=== PATIENT | female | born 1930 | race Caucasian/White ===

== ENCOUNTER 2017-05-28 21:26 | Inpatient (IN) ==
[2017-05-29] MEDS ORDERED: traMADol 50 MG TABLET PO SCH ×2 (00:30→21:00)
[2017-05-29 01:04] LABS: Basophils # 0.1 K/mcL (0.0-0.2); Basophils % 0.4 %; Eosinophils % 0.2 %; Hematocrit 27.6 % (35.3-44.9); Hemoglobin 9.1 g/dL (11.5-15.4); Immature Granulocytes % 1.3 % (0-4); Immature Platelets 3.5 % (1.1-6.1); Lymphocytes # 0.7 K/mcL (0.6-4.6); Lymphocytes % 3.9 %; Mean Corpuscular Hemoglobin 29.5 pg (28.0-33.3); Mean Corpuscular Volume 89.6 fL (83.0-100.0); Mean Platelet Volume 10.6 fL (9.4-12.4); Monocytes # 0.7 K/mcL (0.0-1.3); Monocytes % 4.2 %; Neutrophils # 15.1 K/mcL (1.6-8.9); Platelet Count 269 K/mcL (140-400); Red Blood Count 3.08 M/mcL (3.82-4.97); Red Cell Distribution Width 13.1 % (11.5-14.5)
[2017-05-29] MEDS ORDERED: Dextrose Gel 15 GM PO PRN ×4 (01:17→13:06)
[2017-05-29] MEDS ORDERED: *HR* Dextrose 50 % in Water (Syg) 50 ML SYRINGE IVP PRN ×2 (01:17→13:06)
[2017-05-29] MEDS ORDERED: D5% in Water 1,000 ML IVC PRN ×2 (01:17→13:06)
[2017-05-29 01:18] LABS: Albumin 2.8 g/dL (3.5-5.0); Albumin/Globulin Ratio 0.8 (1.1-2.2); Bilirubin,Total 0.5 mg/dL (0.2-1.2); Calcium 8.4 mg/dL (8.6-10.8); Globulin 3.3 g/dL (2.4-3.5); Potassium 3.4 mEq/L (3.5-4.5); Total Protein 6.1 g/dL (6.0-8.3)
[2017-05-29] MEDS ORDERED: Naloxone 0.4 MG/ML INJ IVP PRN ×2 (01:24→13:06)
[2017-05-29] MEDS ORDERED: Acetaminophen 325 MG TABLET PO PRN (01:24)
[2017-05-29] MEDS ORDERED: Vancomycin 750 MG in D5% in Water 250 ML IVPB SCH (02:00)
[2017-05-29] MEDS ORDERED: Levofloxacin 750 MG/150 ML 750 MG/150 ML BAG IVPB SCH (02:00)
[2017-05-29] MEDS ORDERED: Vancomycin 1,000 MG in D5% in Water 250 ML IVPB ONE (02:00)
[2017-05-29] MEDS ORDERED: Meropenem 500 MG in 0.9 % Sodium Chloride Mini Bag 100 ML IVPB SCH (02:00)
[2017-05-29] MEDS ORDERED: *HR* OxyCODONE/APAP 5/325 TABLET PO PRN ×2 (03:26→13:06)
[2017-05-29 03:51] LABS: Basophils # 0.1 K/mcL (0.0-0.2); Basophils % 0.4 %; Eosinophils % 0.2 %; Hematocrit 25.9 % (35.3-44.9); Hemoglobin 8.7 g/dL (11.5-15.4); Immature Granulocytes % 0.5 % (0-4); Lymphocytes # 0.8 K/mcL (0.6-4.6); Lymphocytes % 5.7 %; Mean Corpuscular HGB Conc 33.6 g/dL (31.6-35.5); Mean Corpuscular Hemoglobin 29.9 pg (28.0-33.3); Mean Platelet Volume 10.4 fL (9.4-12.4); Monocytes # 0.7 K/mcL (0.0-1.3); Neutrophils # 12.3 K/mcL (1.6-8.9); Platelet Count 249 K/mcL (140-400); Red Blood Count 2.91 M/mcL (3.82-4.97); Segmented Neutrophils % 88.2 %
[2017-05-29] MEDS ORDERED: Meropenem 500 MG in Water for inj. (sterile) 10 ML IVP SCH (04:00)
[2017-05-29 04:07] LABS: Calcium 8.4 mg/dL (8.6-10.8); Magnesium 1.7 mg/dL (1.6-2.6); Potassium 3.2 mEq/L (3.5-4.5)
--- NOTE | 2017-05-29 05:13 | Internal Med History&Physical ---
Date of Encounter: 05/29/17 Time of Encounter: 00:15 Assessment and Plan (1) Fluid overload Current visit: Yes Status: Acute Pt has mild SOB, elevated BNP, CXR show pulmonary edema, consider fluid overload. - Pt is in no acute respiratory distress. Finished HD today, potassium level not high, not need urgent HD. - Place pt on low salt diet and fluid restriction. - Repeat echo in AM - Nephro consult for further arrangement of HD in hospital. Qualifiers: Hypervolemia type: other Qualified Code(s): E87.79 - Other fluid overload (2) HTN (hypertension) Current visit: No Status: Chronic Cont home meds. Qualifiers: Hypertension type: essential hypertension Qualified Code(s): I10 - Essential (primary) hypertension (3) Diabetes Current visit: No Status: Chronic Cont basal and sliding scale insulin. Qualifiers: Diabetes mellitus type: type 2 Diabetes mellitus complication status: without complication Diabetes mellitus senior living insulin use: with senior living use Qualified Code(s): E11.9 - Type 2 diabetes mellitus without complications ; Z79.4 - FDC (current) use of insulin (4) DVT prophylaxis Current visit: No Status: Acute Heparin sc (5) End stage renal disease on dialysis Current visit: No Status: Chronic Cont HD (6) Pneumonia Current visit: No Status: Acute Pt has leukocytosis, cough, SOB, CXR shows pneumonia. Pt has ESRD and has frequent HD, treat as HCAP - place pt on vanco, meropenam, and levaquin. - supportive treatment with O2 - follow blood and sputum culture. Pt is at high risk b/o vanco use, need close monitoring Qualifiers: Pneumonia type: due to unspecified organism Laterality: right Lung location: upper lobe of lung Qualified Code(s): J18.1 - Lobar pneumonia, unspecified organism Internal Medicine - H&P: HPI Chief complaint: SOB Admitted From: Home Plans for Post Hospital Care: Home History of present illness: Ms. Freeman is a 86 year old female with hx of DM, ESRD on HD, transferred from [facility] for SOB. Pt was lethargic, weak and increased SOB for 3 days and worse this morning. Pt finished her scheduled HD today. She has running nose and mild nonproductive cough. No fever. Denies chest pain, nausea or vomiting. Pt was transferred to our hospital and stat CXR orderred, which shows pneumonia. Pt was treated with Abx and supportive treatment and her SOB has improved. Past Med Surg Social Fam HX - Past Medical History Medical history: arthritis, diabetes, dialysis, hyperlipidemia, hypertension, renal disease Psychiatric history: no psych history - Past Surgical History Surgical History: appendectomy, cataract, cholecystectomy, ROHAN/BSO, other - Social History Smoking Status: Never smoker Smokeless Tobacco Status: No Alcohol use: none Drug use: none - Family History Mother Living Status: Hx Family Cardiac Disorders: Yes Hx Family Endocrine Disorder: Yes Internal Medicine - H&P: Meds Calcitriol [Rocaltrol] 0.25 mcg PO QAM 05/06/15 [History] Cholecalciferol (Vitamin D3) [Vitamin D] 1,000 units PO QAM 05/06/15 [History] Glimepiride [Amaryl] 4 mg PO QAM 05/06/15 [History] Insulin DETEMIR [Levemir] 12 unit SQ DAILY 05/06/15 [History] Labetalol [Trandate] 200 mg PO QAM 05/06/15 [History] TraMADol [Ultram] 50 mg PO Q6H PRN 05/06/15 [History] Labetalol [Trandate] 100 mg PO QPM 06/15/16 [History] Omeprazole [PriLOSEC] 20 mg PO QAM 06/15/16 [History] Lovastatin [Mevacor] 20 mg PO HS #30 tablet 06/30/16 [Rx] Amino Acids/Protein Hydrolys [Proteinex-18 Liquid] 30 ml PO QAM 07/20/16 [ History] Amlodipine Besylate 10 mg PO QAM 07/20/16 [History] Aspirin Enteric Coated [Aspirin EC] 81 mg PO QAM 07/20/16 [History] Lisinopril [Zestril] 20 mg PO QAM 07/20/16 [History] Vit B Cplx C No.13/Folic AC/D3 [Nephrocaps Qt Tablet] 1 each PO QAM 07/20/16 [ History] 3 Allergy/AdvReac Type Severity Reaction Status Date / Time Cefaclor [From Ceclor] Allergy Unknown Rash Verified 05/06/15 12:36 cephalexin Allergy Unknown Rash Verified 05/06/15 12:36 orphenadrine [From Norflex] Allergy Unknown Rash Verified 05/06/15 12:36 rofecoxib [From Vioxx] Allergy Unknown Rash Verified 05/06/15 12:36 sulfamethoxazole Allergy Unknown Rash Verified 05/06/15 12:36 [From Bactrim] trimethoprim [From Bactrim] Allergy Unknown Rash Verified 05/06/15 12:36 valdecoxib [From Bextra] Allergy Unknown Rash Verified 05/06/15 12:36 atorvastatin [From Lipitor] AdvReac Muscle Pain Verified 06/28/16 01:06 All Systems PM: A 10-system review of systems was performed and is negative for pertinent findings except as documented above in the HPI. - Constitutional Vitals: Temp Pulse Resp BP Pulse Ox 98.4 F 67 12 142/55 98 05/29/17 04:00 05/29/17 05:00 05/29/17 05:00 05/29/17 05:00 05/29/17 05:00 General appearance: Present: A&O X 3, no acute distress, answers questions appropriately - Head Head exam: Present: atraumatic, normocephalic - Eye Eye exam: Present: PERRL, conjuntiva pink, sclera anicteric Pupils: Present: PERRL - Neck Neck exam general surgery: Present: supple, trachea midline. Absent: lymphadenopathy - Respiratory Respiratory exam: Present: CTAB. Absent: accessory muscle use, rales, rhonchi, wheezes - Cardiovascular Cardiovascular exam: Present: RRR, +S1, +S2. Absent: diastolic murmur, gallop, rubs, systolic murmur - GI/Abdominal GI/Abdominal exam: Present: normal bowel sounds, soft, no peritoneal signs. Absent: distended, tenderness - Extremities Exam Extremities exam: Present: warm, radial pulses palpable and symmetrical. Absent : calf tenderness, cyanotic, pedal edema - Neurological Exam Neurological exam: Present: CN II-XII intact, oriented X3, no focal deficits. Absent: pronater drift, facial droop, speech deficit - Skin Skin exam: Present: dry, intact Internal Med - H&P Results - Labs CBC & Chem 7: 05/29/17 03:20 05/29/17 03:20 Labs: Short CBC 05/29/17 05/29/17 Range/Units 00:15 03:20 WBC 16.7 H 14.0 H (4.3-11.1) K/mcL Hgb 9.1 L 8.7 L (11.5-15.4) g/dL Hct 27.6 L 25.9 L (35.3-44.9) % Plt Count 269 249 (140-400) K/mcL Neutrophils # 15.1 H 12.3 H (1.6-8.9) K/mcL BMP 05/29/17 05/29/17 00:15 03:20 Sodium 138 137 Potassium 3.4 L 3.2 L Chloride 97 L 97 L Carbon Dioxide 33 H 33 H BUN 20 21 H Creatinine 1.81 H 1.87 H Glucose 210 H 199 H Calcium 8.4 L 8.4 L Liver Function 05/29/17 Range/Units 00:15 Total Bilirubin 0.5 (0.2-1.2) mg/dL AST 25 (5-34) Units/L ALT 28 (0-55) Units/L Alkaline Phosphatase 98 (38-126) Units/L Albumin 2.8 L (3.5-5.0) g/dL - EKG Data -: EKG Interpreted by Myself EKG shows normal: sinus rhythm Rate: normal - Impressions ITS Impressions Chest X-Ray 05/29/17 23:59 IMPRESSION: 1. Worsening pulmonary edema and developing right upper lobe infiltrate, concerning for pneumonia. 2. Larger left pleural effusion with consolidation in the left lung base. D/ / Fabio Beltran MD / Fabio Beltran MD Interpreting Provider: Fabio Beltran MD
[2017-05-29] MEDS ORDERED: *HR* Heparin 5,000 UNIT/ML VIAL SQ SCH (06:00)
[2017-05-29] MEDS: Insulin LISPRO 300 UNITS/3 ML VIAL SQ SCH ×4 (07:26→21:18)
[2017-05-29] MEDS ORDERED: *HR* Glimepiride 4 MG TABLET PO SCH (07:30)
[2017-05-29] MEDS ORDERED: Ondansetron 4 MG/2 ML VIAL IVP PRN ×2 (07:54→13:06)
[2017-05-29] MEDS ORDERED: Ipratropium/Albuterol Neb 3 ML IH PRN ×2 (08:38→13:06)
--- NOTE | 2017-05-29 08:43 | Event Note ---
<Jorge Kimball - Last Filed: 05/29/17 12:48> Date of Encounter: 05/29/17 Time of Encounter: 08:30 86F evaluated at bedside. Patient came into the hospital with chief complaint of shortness of breath. She also had fevers, chills, non productive cough. she admits to some nausea, but denies vomiting, diarrhea, fever, or chills. she denies any further complaints today. She denies hematuria, blood in stools, dark /tarry stools. Physical Exam: General: alert and oriented x3, no acute distress CV: regular rate and rhythm, no murmurs, rubs, or gallops Respiratory: diffuse rales present. Extremities: no cyanosis, edema, clubbing. Abdomen: soft, mildly distended, tenderness to palpation Assessment/Plan: 1. Sepsis patient meets sepsis criteria based on respirations 22, elevated WBC. source of infection likely secondary to pneumonia. CXR showed pulmonary edema, right upper lobe devloping infiltrate, left pleural effusion. Currently using 2L oxygen, patient does not wear oxygen at home. Plan: Blood and sputum cultures pending. discontinue meropenem- no indication at this time. continue vancomycin, zosyn, levaquin. PRN DuoNebs wean off oxygen as tolerated. 2. Fluid Overload: BP 3353 last Echo was in 2015, repeat echo pending. 3. ESRD on HD MWF consult to nephro 4. Anemia: Baseline Hg around 8.5 check iron panel, ferritin, B12, folate, stool guiac 5. HTN: continue home meds 6. Diabetes: Low dose sliding scale insulin with basal insulin ACHS accuchecks ADA diet. 7. DVT prophylaxis: Heparin SQ <Leslie Diaz - Last Filed: 05/29/17 18:01> Date of Encounter: 05/29/17 Time of Encounter: 00:50 Patient independently seen and examined at bedside. Reports of feeling significantly better from previous day. Admitted for acute respiratory distress likely secondary to underlying pneumonia, and volume overload. He should has history of end-stage renal disease and is on hemodialysis. Nephrology on board, patient scheduled for hemodialysis in a.m. Continue empiric antibiotics, to supplementation as needed. Case discussed with resident physician Jorge Kimball, I agree with her documented findings, assessment, and plan, except as listed above.
--- NOTE | 2017-05-29 08:50 | Event Note ---
Date of Encounter: 05/29/17 Time of Encounter: 08:18
[2017-05-29] MEDS ORDERED: amLODIPine 5 MG TABLET PO SCH (09:00)
[2017-05-29] MEDS ORDERED: Cholecalciferol (D-3) 1,000 UNIT TABLET PO SCH (09:00)
[2017-05-29] MEDS ORDERED: Lisinopril 20 MG TABLET PO SCH (09:00)
[2017-05-29] MEDS ORDERED: Aspirin 81 MG TAB.CHEW PO SCH (09:00)
[2017-05-29] MEDS ORDERED: Insulin DETEMIR 100 UNIT/ML X5UNITS SQ SCH (09:00)
--- NOTE | 2017-05-29 09:57 | Nephrology Consult Note ---
<Nisha Chinchilla - Last Filed: 05/29/17 10:06> Date of Encounter: 05/29/17 Time of Encounter: 09:53 Assessment and Plan (1) Hypokalemia Current Visit: No Status: Acute K+ 3.2 Will adjust K+ bath in dialysis as necessary Do not give K+ supplement at this time (2) ESRD (end stage renal disease) on dialysis Current Visit: No Status: Acute Plan for dialysis tomorrow K+ 3.2-Will adjust K+ bath as necessary; do not give K+ supplement Continue renal diet Strict I/Os-ordered Vanco to be dose by pharmacy Avoid nephrotoxins if possible (3) Anemia Current Visit: No Status: Acute Hgb 8.7 Goal 10-11 Will give Aranesp as indicated Transfuse per parameters Qualifiers: Anemia type: iron deficiency Iron deficiency anemia type: unspecified iron deficiency Qualified Code(s): D50.9 - Iron deficiency anemia, unspecified (4) Pneumonia Current Visit: No Status: Acute per primary team Vanco to be dose by pharmacy Qualifiers: Pneumonia type: due to unspecified organism Laterality: right Lung location: upper lobe of lung Qualified Code(s): J18.1 - Lobar pneumonia, unspecified organism (5) HTN (hypertension) Current Visit: No Status: Chronic per primary team Qualifiers: Hypertension type: essential hypertension Qualified Code(s): I10 - Essential (primary) hypertension History of Present Illness - Reason for Consult Consult date: 05/29/17 - Chief Complaint pneumonia, ESRD on dialysis - History of Present Illness Ms. Freeman is a 86 year old female well known to our practice with hx of DM , ESRD on HD, HTN, arthritis, and hyperlipidemia who was admitted for shortness of breath. Pt was lethargic, weak and increased SOB for 3 days and worse this morning. She has had a runny nose and mild nonproductive cough. No fever. Denies chest pain, nausea or vomiting. Chest xray shows right upper lobe pneumonia. Patient had a full dialysis treatment yesterday at [facility] where she receives her HD treatments M,W,F. She is a very compliant patient who does well in dialysis. Nephrology has been consulted to manage her HD while hospitalized. Past Med Surg Social Fam HX - Past Medical History Medical history: arthritis, diabetes, dialysis, hyperlipidemia, hypertension, renal disease Psychiatric history: no psych history - Past Surgical History Surgical History: appendectomy, cataract, cholecystectomy, ROHAN/BSO, other - Social History Smoking Status: Never smoker Smokeless Tobacco Status: No Alcohol use: none Drug use: none - Family History Mother Living Status: Hx Family Cardiac Disorders: Yes Hx Family Endocrine Disorder: Yes Medications and Allergies Cholecalciferol (Vitamin D3) [Vitamin D] 1,000 units PO QAM 05/06/15 [History] Glimepiride [Amaryl] 4 mg PO QAM 05/06/15 [History] Insulin DETEMIR [Levemir] 12 unit SQ DAILY 05/06/15 [History] Labetalol [Trandate] 100 mg PO QPM 06/15/16 [History] Omeprazole [PriLOSEC] 20 mg PO QAM 06/15/16 [History] Lovastatin [Mevacor] 20 mg PO HS #30 tablet 06/30/16 [Rx] Amlodipine Besylate 10 mg PO QAM 07/20/16 [History] Aspirin Enteric Coated [Aspirin EC] 81 mg PO QAM 07/20/16 [History] Lisinopril [Zestril] 20 mg PO QAM 07/20/16 [History] 3 Allergy/AdvReac Type Severity Reaction Status Date / Time Cefaclor [From Ceclor] Allergy Unknown Rash Verified 05/06/15 12:36 cephalexin Allergy Unknown Rash Verified 05/06/15 12:36 orphenadrine [From Norflex] Allergy Unknown Rash Verified 05/06/15 12:36 rofecoxib [From Vioxx] Allergy Unknown Rash Verified 05/06/15 12:36 sulfamethoxazole Allergy Unknown Rash Verified 05/06/15 12:36 [From Bactrim] trimethoprim [From Bactrim] Allergy Unknown Rash Verified 05/06/15 12:36 valdecoxib [From Bextra] Allergy Unknown Rash Verified 05/06/15 12:36 atorvastatin [From Lipitor] AdvReac Muscle Pain Verified 06/28/16 01:06 Review of Systems All Systems: reviewed and no additional remarkable complaints except as stated Constitutional: fatigue, malaise, no fever(s) Nose, mouth and throat: nasal congestion, nasal discharge Respiratory: cough, dyspnea, dyspnea on exertion Gastrointestinal: no nausea, no vomiting Neurological: no behavioral changes Exam - Vital Signs Vital signs: Initial Vital Signs Pulse 70 05/28/17 23:42 Vital Signs - Last 8 Hours Temp Pulse Resp BP Pulse Ox 05/29/17 09:00 60 132/54 05/29/17 08:00 66 18 163/63 94 05/29/17 07:31 98.0 F 05/29/17 07:30 64 05/29/17 06:00 65 12 148/59 99 05/29/17 05:00 67 12 142/55 98 05/29/17 04:00 98.4 F 67 17 163/63 98 05/29/17 03:00 71 17 156/63 98 05/29/17 02:43 73 05/29/17 02:00 71 22 160/66 99 Intake and Output 05/28/17 05/29/17 05/29/17 23:59 07:59 15:59 Intake Total 0 / 0 400 / 400 Output Total 0 / 0 50 / 50 Balance 0 / 0 350 / 350 Intake: IV Fluids 160 / 160 Merrem 500 MG In Water for inj. 10 / 10 (sterile) 10 ML @ 200 mls/hr IVP Q24H DORETHA Rx#:[id number] Levaquin Premix 750mg/150 mL 150 / 150 750 mg In 150 ml @ 100 mls/hr IVPB Q48H DORETHA Rx#:[id number] Oral 0 / 0 240 / 240 Output: Catheter 0 / 0 50 / 50 Other: Weight 57.5 kg Blood Glucose* 193 160 - General Appearance General appearance: well-developed, well-nourished EENT: ATNC, mucous membranes moist, hearing intact, vision intact Neck: supple Respiratory: clear (decreased throughout) Cardiology: no edema, normal S1, normal S2 - Dialysis Access Dialysis Vascular Access: Arteriovenous Fistula Gastrointestinal: no tenderness, no guarding Integumentary: warm and dry Neurologic: alert and oriented x3 Psychiatric: mood/affect appropriate, cooperative Results - Lab Results 05/29/17 03:20 05/29/17 03:20 Most recent lab results Calcium 8.4 mg/dL (8.6-10.8) L 05/29/17 03:20 Magnesium 1.7 mg/dL (1.6-2.6) 05/29/17 03:20 Consult Discharge Plan - Plan Referrals: Lyle Caro MD [Primary Care Provider] - <Maura Mckeon - Last Filed: 06/04/17 05:39> Date of Encounter: 05/29/17 Assessment and Plan (1) End stage renal disease on dialysis Current Visit: No Status: Chronic (2) Pneumonia Current Visit: Yes Status: Acute Qualifiers: Pneumonia type: due to unspecified organism Laterality: right Lung location: upper lobe of lung Qualified Code(s): J18.1 - Lobar pneumonia, unspecified organism Exam - Vital Signs Vital signs: Initial Vital Signs Pulse 70 05/28/17 23:42 Vital Signs - Last 8 Hours Temp Pulse Resp BP Pulse Ox 06/04/17 00:50 98.5 F 66 14 156/56 95 Intake and Output 06/03/17 06/03/17 06/04/17 15:59 23:59 07:59 Intake Total 120 / 120 120 / 120 0 / 0 Output Total 0 / 0 0 / 0 Balance 120 / 120 120 / 120 0 / 0 Intake: Oral 120 / 120 120 / 120 0 / 0 Output: Urine 0 / 0 0 / 0 Other: Meal Breakfast Percent of Meal Consumed 60% Stool Size Moderate Stool Consistency liquid Stool Color Brown # Urine Diapers 1 # Bowel Movement Diapers 1 Blood Glucose* 202 194 Results - Lab Results 06/04/17 03:35 06/04/17 03:35 Most recent lab results Calcium 9.8 mg/dL (8.6-10.8) 06/04/17 03:35 Phosphorus 3.8 mg/dL (2.3-4.7) 05/31/17 05:06 Magnesium 1.9 mg/dL (1.6-2.6) 05/31/17 05:06 - Attending Attestation I examined this patient and my medical decision-making was reviewed with the Resident Physician/ ROUTE DRIVER SALESPERSON. I agree with the documented findings, disposition and treatment plan as described except to the extent set forth below. In brief 86 y o female with ESRd on HD admitted with SOB and cough and diganosed with PNA. Benjamin consulted for continuation of acre for her dialysis. Last HD noted as a full treatment with no issues. Will reinstate her regular HD while hospitalized [id number] and also manage her potassium levels.
[2017-05-29] MEDS: *HR* Heparin 5,000 UNIT/ML VIAL SQ SCH (17:06)
[2017-05-29] MEDS: Piperacillin/Tazobactam 3.375 GM in D5% in Water 50 ML IVPB SCH (17:06)
[2017-05-29] MEDS ORDERED: Piperacillin/Tazobactam 3.375 GM in D5% in Water 50 ML IVPB SCH (18:00)
--- NOTE | 2017-05-29 20:38 | Electrocardiograph Report ---
[place] [id number] Test Date: 2017-05-29 Pat Name: Jolanta Freeman Department: 109 Room: 2A43 Gender: F Marketing Communication Manager: : [id number] Requested By: Gatito Giordano Order Number: [id number] Reading MD: Ramana Gil MD Measurements Intervals [place] Rate: 74 P: 60 [place]: 189 QRS: -30 QRSD: 110 T: 41 QT: 418 QTc: 446 Interpretive Statements SINUS RHYTHM LEFT ATRIAL ENLARGEMENT Poor R wave progression Electronically Signed On 05-29-2017 20:37:25 EST by Ramana Gil MD
[2017-05-29] MEDS ORDERED: Insulin LISPRO 300 UNITS/3 ML VIAL SQ SCH (21:00)
[2017-05-30] MEDS: Piperacillin/Tazobactam 3.375 GM in D5% in Water 50 ML IVPB SCH ×2 (05:27→18:51)
[2017-05-30] MEDS: *HR* Heparin 5,000 UNIT/ML VIAL SQ SCH ×2 (05:28→17:25)
[2017-05-30 06:24] LABS: Basophils # 0.1 K/mcL (0.0-0.2); Basophils % 0.6 %; Eosinophils # 0.7 K/mcL (0.0-0.6); Eosinophils % 6.3 %; Hematocrit 27.7 % (35.3-44.9); Immature Granulocytes % 0.4 % (0-4); Lymphocytes # 0.9 K/mcL (0.6-4.6); Lymphocytes % 7.7 %; Mean Corpuscular HGB Conc 32.5 g/dL (31.6-35.5); Mean Corpuscular Hemoglobin 29.6 pg (28.0-33.3); Mean Corpuscular Volume 91.1 fL (83.0-100.0); Mean Platelet Volume 10.7 fL (9.4-12.4); Monocytes # 0.9 K/mcL (0.0-1.3); Monocytes % 7.8 %; Neutrophils # 8.8 K/mcL (1.6-8.9); Platelet Count 254 K/mcL (140-400); Red Blood Count 3.04 M/mcL (3.82-4.97); Segmented Neutrophils % 77.2 %
[2017-05-30 06:47] LABS: VBG HCO3 34 mEq/L (21-27); VBG Ionized Calcium 1.13 mmol/L (1.15-1.35); VBG PCO2 55 mmHg (41-51); VBG PH 7.39 pH Units (7.32-7.42); VBG PO2 54 mmHg (25-50)
[2017-05-30 06:55] LABS: Calcium 9.4 mg/dL (8.6-10.8); Phosphorous 4.7 mg/dL (2.3-4.7); Potassium 3.4 mEq/L (3.5-4.5)
[2017-05-30] MEDS ORDERED: 0.9 % Sodium Chloride 250 ML IVC PRN (08:14)
[2017-05-30] MEDS ORDERED: 0.9 % Sodium Chloride 1,000 ML PRIME SCH (08:15)
[2017-05-30] MEDS: Lisinopril 20 MG TABLET PO SCH (08:24)
[2017-05-30] MEDS: amLODIPine 5 MG TABLET PO SCH (08:25)
[2017-05-30] MEDS: Cholecalciferol (D-3) 1,000 UNIT TABLET PO SCH (08:26)
[2017-05-30] MEDS: Insulin DETEMIR 100 UNIT/ML X5UNITS SQ SCH (08:27)
[2017-05-30] MEDS: Aspirin 81 MG TAB.CHEW PO SCH (08:28)
[2017-05-30] MEDS: Insulin LISPRO 300 UNITS/3 ML VIAL SQ SCH ×4 (08:29→20:21)
[2017-05-30] MEDS ORDERED: Aminoglycoside Consult 1 EACH MC ONE (08:41)
--- NOTE | 2017-05-30 10:12 | Internal Med Progress Note ---
Date of Encounter: 05/30/17 Time of Encounter: 10:08 - Assessment and plan (1) Sepsis Current Visit: Yes Status: Acute Assessment and plan: resolved likely secondary to underlying RUL PNA continue empiric antibiotics for another day, de-escalate therapy in am if patient continues to clinically improve (Day 2 of IV abx -Vancomycin, Zosyn, Levaquin) f/u blood cultures Qualifiers: Sepsis type: sepsis due to unspecified organism Qualified Code(s): A41.9 - Sepsis, unspecified organism (2) Pneumonia Current Visit: No Status: Acute Assessment and plan: as listed above Qualifiers: Pneumonia type: due to unspecified organism Laterality: right Lung location: upper lobe of lung Qualified Code(s): J18.1 - Lobar pneumonia, unspecified organism (3) Acute respiratory distress Current Visit: Yes Status: Acute Assessment and plan: Likely secondary to underlying PNA clinically improving continue to titrate down O2 therapy, patient reports of not being on home oxygen prior to this hospitalization continue empiric abx concern for volume overload contributing to respiratory distress, scheduled for TUBE MOLDER FIBERGLASS today (4) Anemia Current Visit: No Status: Chronic Assessment and plan: secondary to ESRD H&H low but acceptable no acute bleeding reported at this time continue to monitor Qualifiers: Anemia type: other cause Other causes of anemia: other cause, not classified Qualified Code(s): D64.89 - Other specified anemias (5) ESRD (end stage renal disease) on dialysis Current Visit: No Status: Chronic Assessment and plan: Nephrology on board and consultation appreciated continue patient's HD on MWF (6) Fluid overload Current Visit: Yes Status: Acute Assessment and plan: scheduled for TUBE MOLDER FIBERGLASS today Qualifiers: Hypervolemia type: other Qualified Code(s): E87.79 - Other fluid overload (7) Diabetes mellitus Current Visit: No Status: Chronic Assessment and plan: continue sliding scale insulin algorithm monitor FS and BG ADA diet Qualifiers: Diabetes mellitus type: type 2 Diabetes mellitus complication status: with unspecified complications Diabetes mellitus nursing home insulin use: with nursing home use Qualified Code(s): E11.8 - Type 2 diabetes mellitus with unspecified complications; Z79.4 - intermediate (current) use of insulin (8) Hypertension Current Visit: No Status: Acute Assessment and plan: BP within acceptable range continue home medications Qualifiers: Hypertension type: essential hypertension Qualified Code(s): I10 - Essential (primary) hypertension (9) Hypokalemia Current Visit: No Status: Acute Assessment and plan: nephrology on board and to get replacement during hemodialysis continue to monitor electrolytes and replace as needed (10) DVT prophylaxis Current Visit: No Status: Acute Assessment and plan: Heparin SQ - Subjective Interval history: Patient is an 86y/o female admitted for acute respiratory distress secondary to RUL PNA and volume overload secondary to ESRD. Patient seen and examined at bedside. Resting comfortably in bed and reports of feeling better compared to previous day. Currently saturating well on 1L NC and reports of not being on home oxygen. Denies any discomfort at this time. will continue to titrate off O2 therapy d/c weber today - Constitutional Vitals: Temp Pulse Resp BP Pulse Ox 97.5 F L 63 16 137/56 96 05/30/17 06:51 05/30/17 06:51 05/30/17 06:51 05/30/17 06:51 05/30/17 06:51 General appearance: Present: A&O X 3 (frail appearing elderly female ), no acute distress, answers questions appropriately - Head Head exam: Present: atraumatic, normocephalic - Eye Eye exam: Present: conjuntiva pink, sclera anicteric - Respiratory Respiratory exam: Absent: respiratory distress, wheezes (bibasilar rales, decreased breath sounds ) - Cardiovascular Cardiovascular exam: Present: RRR, +S1, +S2. Absent: diastolic murmur, gallop, rubs, systolic murmur - GI/Abdominal GI/Abdominal exam: Present: normal bowel sounds, soft, no peritoneal signs. Absent: distended, tenderness - Extremities Exam Extremities exam: Present: warm, radial pulses palpable and symmetrical. Absent : calf tenderness, cyanotic, pedal edema - Neurological Exam Neurological exam: Present: alert, oriented X3 - Psychiatric Psychiatric exam: Present: normal affect, normal mood Internal Medicine: Result - Labs CBC & Chem 7: 05/30/17 05:50 05/30/17 05:50 Labs: Short CBC 05/30/17 Range/Units 05:50 WBC 11.4 H (4.3-11.1) K/mcL Hgb 9.0 L (11.5-15.4) g/dL Hct 27.7 L (35.3-44.9) % Plt Count 254 (140-400) K/mcL Neutrophils # 8.8 (1.6-8.9) K/mcL BMP 05/30/17 05:50 Sodium 136 Potassium 3.4 L Chloride 95 L Carbon Dioxide 32 H BUN 33 H D Creatinine 3.27 H D Glucose 66 L Calcium 9.4 - Impressions Impressions Echocardiogram 05/29/17 05:12 Impressions: LVEF 50-55%. Normal LV chamber size and function. Mild concentric left ventricular hypertrophy. Moderate left ventricular diastolic dysfunction. Normal right ventricular structure and function. Mild tricuspid regurgitation. No pulmonary hypertension. There is a small pericardial effusion present. There is no echocardiographic evidence of tamponade. Left Ventricular Wall Motion: Rest Echo Findings All wall segments showed normal motion. Findings: Study Quality * Technically adequate exam. ECG Findings * Sinus bradycardia. Left Ventricle * LVEF 50-55%. * Normal LV chamber size and function. * Mild concentric left ventricular hypertrophy. * Moderate left ventricular diastolic dysfunction. Right Ventricle * Normal right ventricular structure and function. Left Atrium * Mildly dilated left atrium. Right Atrium * Mildly dilated right atrium. Interatrial Septum * Interatrial septum not well evaluated. Aortic Valve * Trileaflet aortic valve. * No aortic regurgitation. * No aortic stenosis. Mitral Valve * Moderate mitral annular calcification. * Mildly thickened and calcified mitral valve leaflets. * Trace mitral regurgitation. * No mitral stenosis. Tricuspid Valve * Normal tricuspid valve structure. * Mild tricuspid regurgitation. * No pulmonary hypertension. Pulmonic Valve * Normal pulmonic valve structure and function. * Trace pulmonic regurgitation. Aorta * Normally sized aortic root. Pericardium * There is a small pericardial effusion present. * There is no echocardiographic evidence of tamponade. IVC * Normal IVC dimensions and inspiratory collapse. Pulmonary Artery * Normal visualized portions of the main pulmonary artery. Consult Discharge Plan - Plan Referrals: Lyle Caro MD [Primary Care Provider] -
[2017-05-30 10:40] LABS: Hepatitis B Surface Antibody 0.85 mIU/mL; Hepatitis B Surface Antigen Nonreactive (Nonreactive)
[2017-05-30 12:26] LABS: Folate 33.3 ng/mL (7.0-31.4)
[2017-05-30] MEDS ORDERED: 0.9 % Sodium Chloride 2,000 ML ONE (13:06)
[2017-05-30] MEDS: traMADol 50 MG TABLET PO PRN (15:24)
--- NOTE | 2017-05-30 16:01 | Nephrology Progress Note ---
Date of Encounter: 05/30/17 Time of Encounter: 12:00 - Assessment and Plan (1) Chest pain Current Visit: No Status: Acute Will draw troponin after HD today x2 Qualifiers: Chest pain type: unspecified Qualified Code(s): R07.9 - Chest pain, unspecified (2) End stage renal disease on dialysis Current Visit: No Status: Chronic Continue HD with UF as tolerated and reduce UF if hypotension arise and/or if chest/epigastric pain persists (3) Pleural effusion Current Visit: Yes Status: Acute Large L pleural effusion noted with consolidation, may need further intervention , imaging as HD does NOT remove effusions. Continue abx per primary team Subjective Interval history: Pt seen and examined on HD complaining of epigastric abd/chest pain while on HD. No N/V/SOB Objective - Vital Signs Vital signs: Vital Signs Temp Pulse Resp BP Pulse Ox 05/30/17 15:35 113/53 05/30/17 15:20 107/47 05/30/17 15:05 107/47 05/30/17 14:50 115/46 05/30/17 14:35 103/36 05/30/17 14:20 114/50 05/30/17 14:05 123/50 05/30/17 13:50 121/40 05/30/17 13:35 97.8 F 16 122/40 05/30/17 10:24 97.7 F 63 16 125/62 97 05/30/17 06:51 97.5 F L 63 16 137/56 96 05/30/17 04:08 97.6 F 58 15 126/44 96 05/29/17 23:28 97.7 F 57 15 134/57 95 05/29/17 19:16 97.4 F L 62 14 132/48 94 05/29/17 16:01 97.8 F Intake and Output 05/29/17 05/30/17 05/30/17 23:59 07:59 15:59 Intake Total 290 / 290 720 / 720 Output Total 77 / 77 50 / 50 Balance 213 / 213 -50 / -50 720 / 720 Intake: IV Fluids 50 / 50 Zosyn 3.375 GM In Dextrose 5% ( 50 / 50 ADD-[place]) 50 ML @ 12.5 mls/ hr IVPB Q12HR [facility] Rx#: [id number] Oral 240 / 240 120 / 120 Intake, Rinseback and Flushes 600 / 600 Output: Catheter 77 / 77 50 / 50 Other: Meal Breakfast Percent of Meal Consumed 65% Weight 57.9 kg Blood Glucose* 87 102 165 Hemodialysis Net Fluid Removed 2406 (mL) - Lab 05/30/17 05:50 05/30/17 05:50 Most recent lab results Calcium 9.4 mg/dL (8.6-10.8) 05/30/17 05:50 Phosphorus 4.7 mg/dL (2.3-4.7) 05/30/17 05:50 Magnesium 2.0 mg/dL (1.6-2.6) 05/30/17 05:50 Consult Discharge Plan - Plan Referrals: Lyle Caro MD [Primary Care Provider] -
[2017-05-30] MEDS ORDERED: Vancomycin 500 MG in D5% in Water 100 ML IVPB ONE (17:00)
[2017-05-30] MEDS: *HR* OxyCODONE/APAP 5/325 TABLET PO PRN (20:58)
[2017-05-31 05:50] LABS: Calcium 9.1 mg/dL (8.6-10.8); Magnesium 1.9 mg/dL (1.6-2.6); Phosphorous 3.8 mg/dL (2.3-4.7)
[2017-05-31 05:51] LABS: Basophils # 0.1 K/mcL (0.0-0.2); Basophils % 0.9 %; Eosinophils # 0.9 K/mcL (0.0-0.6); Eosinophils % 8.8 %; Hematocrit 26.8 % (35.3-44.9); Hemoglobin 8.9 g/dL (11.5-15.4); Immature Granulocytes % 0.8 % (0-4); Immature Platelets 6.7 % (1.1-6.1); Lymphocytes # 1.3 K/mcL (0.6-4.6); Lymphocytes % 13.3 %; Mean Corpuscular HGB Conc 33.2 g/dL (31.6-35.5); Mean Corpuscular Hemoglobin 29.3 pg (28.0-33.3); Mean Corpuscular Volume 88.2 fL (83.0-100.0); Mean Platelet Volume 11.4 fL (9.4-12.4); Monocytes # 0.9 K/mcL (0.0-1.3); Neutrophils # 6.8 K/mcL (1.6-8.9); Potassium 4.6 mEq/L (3.5-4.5); Red Blood Count 3.04 M/mcL (3.82-4.97); Red Cell Distribution Width 13.1 % (11.5-14.5); Segmented Neutrophils % 67.2 %
[2017-05-31] MEDS: *HR* Heparin 5,000 UNIT/ML VIAL SQ SCH ×2 (06:15→17:59)
[2017-05-31] MEDS: Piperacillin/Tazobactam 3.375 GM in D5% in Water 50 ML IVPB SCH ×2 (06:15→17:58)
[2017-05-31 06:19] LABS: Platelet Count 239 K/mcL (140-400)
[2017-05-31] MEDS: traMADol 50 MG TABLET PO PRN (06:50)
[2017-05-31] MEDS: Insulin LISPRO 300 UNITS/3 ML VIAL SQ SCH ×4 (07:33→21:15)
[2017-05-31] MEDS ORDERED: Levofloxacin 500 MG/100 ML 500 MG/100 ML BAG IVPB SCH (08:00)
[2017-05-31] MEDS: Levofloxacin 500 MG/100 ML 500 MG/100 ML BAG IVPB SCH (10:17)
[2017-05-31] MEDS: amLODIPine 5 MG TABLET PO SCH (10:17)
[2017-05-31] MEDS: Aspirin 81 MG TAB.CHEW PO SCH (10:18)
[2017-05-31] MEDS: Lisinopril 20 MG TABLET PO SCH (10:18)
[2017-05-31] MEDS: Cholecalciferol (D-3) 1,000 UNIT TABLET PO SCH (10:18)
[2017-05-31] MEDS: Insulin DETEMIR 100 UNIT/ML X5UNITS SQ SCH (10:22)
--- NOTE | 2017-05-31 10:22 | Internal Med Progress Note ---
<Angel Garvey - Last Filed: 05/31/17 12:49> Date of Encounter: 05/31/17 Time of Encounter: 09:00 - Assessment and plan (1) Pneumonia Current Visit: No Status: Acute Assessment and plan: Chest x-ray performed on 05/29/17: Chemistry worsening pulmonary edema and developing right upper lobe infiltrate. Large left pleural effusion with consolidation in the left lung base. -Patient's white count was elevated at 14 on admission. -Patient is day 3 of IV antibiotics. -Blood culture was negative. -Patient's white count today is 10.1. Plan: -Zosyn 3.375 IV every 12 started on 05/29/17. -Vancomycin was discontinued on 05/30/17. -Levaquin 500 mg every 48 was started on 05/31/17. -O2 via nasal cannula. Qualifiers: Pneumonia type: due to unspecified organism Laterality: right Lung location: upper lobe of lung Qualified Code(s): J18.1 - Lobar pneumonia, unspecified organism (2) HTN (hypertension) Current Visit: No Status: Chronic Assessment and plan: BP this morning was 146/55. -Norvasc 10 mg PO daily -Lisinopril 20 mg PO daily -Labetalol 100 mg PO daily Qualifiers: Hypertension type: essential hypertension Qualified Code(s): I10 - Essential (primary) hypertension (3) Anemia Current Visit: No Status: Chronic Assessment and plan: Secondary to ESRD -H&H low but acceptable -Continue to monitor -Patient's hemoglobin this morning was 8.9. Qualifiers: Anemia type: other cause Other causes of anemia: other cause, not classified Qualified Code(s): D64.89 - Other specified anemias (4) CKD (chronic kidney disease) stage 4, GFR 15-29 ml/min Current Visit: No Status: Chronic Assessment and plan: Continue HD on MWF (5) Diabetes mellitus Current Visit: No Status: Chronic Assessment and plan: continue sliding scale insulin algorithm. -Monitor FS and BG. -Glucose this morning was low at 65. -ADA diet. Qualifiers: Diabetes mellitus type: type 2 Diabetes mellitus complication status: with unspecified complications Diabetes mellitus shelter insulin use: with shelter use Qualified Code(s): E11.8 - Type 2 diabetes mellitus with unspecified complications; Z79.4 - penitentiary (current) use of insulin (6) DVT prophylaxis Current Visit: No Status: Acute Assessment and plan: Heparin 5000 SQ 12 - Subjective Interval history: Patient seen and exmained at bedside this morning. Reports feeling sick to her stomach after taking tramadol for pain control. Reports having pain in her legs and back for several years. She felt as though her tramadol was too strong. She denies having any pain at the present time. She reports that her shortness of breath has improved. Currently on O2 via nasal cannula. Denies fever, chills, shourtness of breath, cough, or excessive sputum production. Patient has no further complaints at this time. - Constitutional Vitals: Temp Pulse Resp BP Pulse Ox 97.9 F 63 16 146/55 97 05/31/17 06:48 05/31/17 06:48 05/31/17 06:48 05/31/17 06:48 05/31/17 06:48 General appearance: Present: A&O X 3 (frail appearing elderly female ), no acute distress, answers questions appropriately - Head Head exam: Present: atraumatic, normocephalic - Eye Eye exam: Present: PERRL, conjuntiva pink, sclera anicteric Pupils: Present: PERRL - Neck Neck exam general surgery: Present: supple, trachea midline. Absent: lymphadenopathy - Respiratory Respiratory exam: Present: CTAB. Absent: accessory muscle use, rales, rhonchi, wheezes Additional comments: Shortened inspiratory phase - Cardiovascular Cardiovascular exam: Present: RRR, +S1, +S2. Absent: diastolic murmur, gallop, rubs, systolic murmur - Psychiatric Psychiatric exam: Present: normal affect, normal mood - Skin Skin exam: Present: dry, intact Internal Medicine: Result - Labs CBC & Chem 7: 05/31/17 05:06 05/31/17 05:06 Labs: Short CBC 05/31/17 Range/Units 05:06 WBC 10.1 (4.3-11.1) K/mcL Hgb 8.9 L (11.5-15.4) g/dL Hct 26.8 L (35.3-44.9) % Plt Count 239 (140-400) K/mcL Neutrophils # 6.8 (1.6-8.9) K/mcL BMP 05/31/17 05:06 Sodium 133 L Potassium 4.6 H D Chloride 95 L Carbon Dioxide 29 BUN 21 H D Creatinine 2.52 H Glucose 65 L Calcium 9.1 Consult Discharge Plan - Plan Referrals: Lyle Caro MD [Primary Care Provider] - <Bala Alexander - Last Filed: 05/31/17 13:28> Date of Encounter: 05/31/17 - Constitutional Vitals: Temp Pulse Resp BP Pulse Ox 98 F 61 16 120/64 96 05/31/17 10:37 05/31/17 10:37 05/31/17 10:37 05/31/17 10:37 05/31/17 10:37 Internal Medicine: Result - Labs CBC & Chem 7: 05/31/17 05:06 05/31/17 05:06 Labs: Short CBC 05/31/17 Range/Units 05:06 WBC 10.1 (4.3-11.1) K/mcL Hgb 8.9 L (11.5-15.4) g/dL Hct 26.8 L (35.3-44.9) % Plt Count 239 (140-400) K/mcL Neutrophils # 6.8 (1.6-8.9) K/mcL BMP 05/31/17 05:06 Sodium 133 L Potassium 4.6 H D Chloride 95 L Carbon Dioxide 29 BUN 21 H D Creatinine 2.52 H Glucose 65 L Calcium 9.1 - Attending Attestation I independly interviewed and examined this pt. I agree with the findings, assessment and plan of Dr. Garvey, Paring Machine Operator. Pt clinically improving. Suspect pleural effusion may be due to ESRD as opp to parapneumonic effusion, but will follow closely with low threshold to perform thoracentesis. Tailor abx as able , continue to closely monitor. Nephrology input appreciated.
[2017-06-01] MEDS: *HR* Heparin 5,000 UNIT/ML VIAL SQ SCH ×2 (05:24→18:50)
[2017-06-01] MEDS: Piperacillin/Tazobactam 3.375 GM in 0.9 % Sodium Chloride Mini Bag 100 ML IVPB SCH (05:27)
[2017-06-01 07:34] LABS: Hematocrit 26.5 % (35.3-44.9); Hemoglobin 8.8 g/dL (11.5-15.4); Immature Platelets 4.2 % (1.1-6.1); Mean Corpuscular HGB Conc 33.2 g/dL (31.6-35.5); Mean Corpuscular Hemoglobin 29.6 pg (28.0-33.3); Mean Corpuscular Volume 89.2 fL (83.0-100.0); Mean Platelet Volume 10.4 fL (9.4-12.4); Red Blood Count 2.97 M/mcL (3.82-4.97); Red Cell Distribution Width 13.1 % (11.5-14.5)
[2017-06-01 07:46] LABS: Calcium 8.8 mg/dL (8.6-10.8); Potassium 4.6 mEq/L (3.5-4.5)
[2017-06-01] MEDS: Insulin LISPRO 300 UNITS/3 ML VIAL SQ SCH ×3 (08:23→17:30)
[2017-06-01] MEDS: Aspirin 81 MG TAB.CHEW PO SCH (08:46)
[2017-06-01] MEDS: Cholecalciferol (D-3) 1,000 UNIT TABLET PO SCH (08:46)
[2017-06-01] MEDS: Insulin DETEMIR 100 UNIT/ML X5UNITS SQ SCH (08:46)
--- NOTE | 2017-06-01 10:14 | Internal Med Progress Note ---
<Angel Garvey - Last Filed: 06/01/17 14:34> Date of Encounter: 06/01/17 Time of Encounter: 08:30 - Assessment and plan (1) Pneumonia Current Visit: No Status: Acute Assessment and plan: Chest x-ray performed on 05/29/17: Chemistry worsening pulmonary edema and developing right upper lobe infiltrate. Large left pleural effusion with consolidation in the left lung base. Repeat chest x-ray on 05/31/17: Improved right lung upper airspace opacity. Unchanged left basilar opacity with bilateral effusions, left greater than right. Cardiomegaly with mild interstitial edema. -Patient's white count was elevated at 14 on admission. -Patient is day 3 of IV antibiotics. -Blood culture was negative. -Patient's white count yesterday is 10.1; increased to 12.3 today. -Vancomycin has been discontinued. Plan: -Zosyn 3.375 IV every 12 started on 05/29/17. -Levaquin 500 mg every 48 was started on 05/31/17. -O2 via nasal cannula. Qualifiers: Pneumonia type: due to unspecified organism Laterality: right Lung location: upper lobe of lung Qualified Code(s): J18.1 - Lobar pneumonia, unspecified organism (2) HTN (hypertension) Current Visit: No Status: Chronic Assessment and plan: BP this morning was 156/49. -Norvasc 10 mg PO daily -Lisinopril 20 mg PO daily -Labetalol 100 mg PO daily Qualifiers: Hypertension type: essential hypertension Qualified Code(s): I10 - Essential (primary) hypertension (3) Anemia Current Visit: No Status: Chronic Assessment and plan: Secondary to ESRD -H&H low but acceptable -Continue to monitor -Patient's hemoglobin this morning was 8.8. Qualifiers: Anemia type: other cause Other causes of anemia: other cause, not classified Qualified Code(s): D64.89 - Other specified anemias (4) CKD (chronic kidney disease) stage 4, GFR 15-29 ml/min Current Visit: No Status: Chronic Assessment and plan: Continue HD on MWF. Patient is scheduled for dialysis later today. (5) Diabetes mellitus Current Visit: No Status: Chronic Assessment and plan: continue sliding scale insulin algorithm. -Monitor FS and BG. -Glucose this morning was 84. -ADA diet. Qualifiers: Diabetes mellitus type: type 2 Diabetes mellitus complication status: with unspecified complications Diabetes mellitus extermination supervisor insulin use: with extermination supervisor use Qualified Code(s): E11.8 - Type 2 diabetes mellitus with unspecified complications; Z79.4 - penitentiary (current) use of insulin (6) DVT prophylaxis Current Visit: No Status: Acute Assessment and plan: Heparin 5000 SQ 12 - Subjective Interval history: Patient seen and exmained at bedside this morning. Patient reported that yesterday, she felt sick to her stomach after taking Toradol. She states that the medication was too strong and made her feel ill. Since yesterday, patient denies having any nausea, vomiting, or stomach pain. She states that her breathing has been normal. No chest pain, shortness of breath, or cough. Patient is scheduled for dialysis later today. Currently on O2 via nasal cannula. She has no complaints at this time. - Constitutional Vitals: Temp Pulse Resp BP Pulse Ox 98.2 F 68 16 156/49 95 06/01/17 07:26 06/01/17 07:26 06/01/17 07:26 06/01/17 07:26 06/01/17 07:26 General appearance: Present: A&O X 3 (frail appearing elderly female ), no acute distress, answers questions appropriately - Head Head exam: Present: atraumatic, normocephalic - Eye Eye exam: Present: PERRL, conjuntiva pink, sclera anicteric Pupils: Present: PERRL - Neck Neck exam general surgery: Present: supple, trachea midline. Absent: lymphadenopathy - Respiratory Respiratory exam: Present: CTAB. Absent: accessory muscle use, rales, rhonchi, wheezes - Cardiovascular Cardiovascular exam: Present: RRR, +S1, +S2. Absent: diastolic murmur, gallop, rubs, systolic murmur - Extremities Exam Extremities exam: Present: warm, radial pulses palpable and symmetrical - Skin Skin exam: Present: dry, intact Internal Medicine: Result - Labs CBC & Chem 7: 06/01/17 07:21 06/01/17 07:21 Labs: Short CBC 06/01/17 Range/Units 07:21 WBC 12.3 H (4.3-11.1) K/mcL Hgb 8.8 L (11.5-15.4) g/dL Hct 26.5 L (35.3-44.9) % Plt Count 257 (140-400) K/mcL [facility] 06/01/17 07:21 Sodium 131 L Potassium 4.6 H Chloride 94 L Carbon Dioxide 27 BUN 34 H D Creatinine 3.84 H D Glucose 84 Calcium 8.8 - Impressions Impressions Chest X-Ray 05/31/17 15:04 IMPRESSION: 1. Improved right upper lung airspace opacity. 2. Unchanged left base opacity with bilateral effusions, left greater than right. 3. Cardiomegaly with mild interstitial edema. D/ / 05/31/2017 15:43:47 Katelyn Barragan MD / [email or web address] Interpreting Provider: Katelyn Barragan MD Consult Discharge Plan - Plan Referrals: Lyle Caro MD [Primary Care Provider] - <Bala Alexander - Last Filed: 06/01/17 15:15> Date of Encounter: 06/01/17 - Constitutional Vitals: Temp Pulse Resp BP Pulse Ox 98.3 F 67 16 162/62 96 06/01/17 12:51 06/01/17 12:51 06/01/17 12:51 06/01/17 12:51 06/01/17 12:51 Internal Medicine: Result - Labs CBC & Chem 7: 06/01/17 07:21 06/01/17 07:21 Labs: Short CBC 06/01/17 Range/Units 07:21 WBC 12.3 H (4.3-11.1) K/mcL Hgb 8.8 L (11.5-15.4) g/dL Hct 26.5 L (35.3-44.9) % Plt Count 257 (140-400) K/mcL [facility] 06/01/17 07:21 Sodium 131 L Potassium 4.6 H Chloride 94 L Carbon Dioxide 27 BUN 34 H D Creatinine 3.84 H D Glucose 84 Calcium 8.8 - Impressions Impressions Chest X-Ray 05/31/17 15:04 IMPRESSION: 1. Improved right upper lung airspace opacity. 2. Unchanged left base opacity with bilateral effusions, left greater than right. 3. Cardiomegaly with mild interstitial edema. D/ / 05/31/2017 15:43:47 Katelyn Barragan MD / [email or web address] Interpreting Provider: Katelyn Barragan MD - Attending Attestation I performed an independent interview and exam of this patient. I agree with the findings, assessment, and plan of Dr. Garvey, recruiting intern. Nephrology notes reviewed. Biotics as ordered. Should patient fail to improve, or shortly signs of worsening, we will consider ulnar medicine consultation for diagnostic and therapeutic thoracentesis. Physical therapy has been asked to assist with this patient as well. He is having hemodialysis today.
[2017-06-01] MEDS ORDERED: 0.9 % Sodium Chloride 250 ML IVC PRN (12:12)
--- NOTE | 2017-06-01 16:28 | Nephrology Progress Note ---
Date of Encounter: 06/01/17 - Assessment and Plan (1) Chest pain Current Visit: No Status: Acute Will draw troponin after HD today x2 Qualifiers: Chest pain type: unspecified Qualified Code(s): R07.9 - Chest pain, unspecified (2) End stage renal disease on dialysis Current Visit: No Status: Chronic Continue HD with UF as tolerated and reduce UF if hypotension arise and/or if chest/epigastric pain persists (3) Pleural effusion Current Visit: Yes Status: Acute Large L pleural effusion noted with consolidation, may need further intervention , imaging as HD does NOT remove effusions. Continue abx per primary team Subjective Interval history: Pt seen and examined on HD complaining of epigastric abd/chest pain while on HD. No N/V/SOB Objective - Vital Signs Vital signs: Vital Signs Temp Pulse Resp BP Pulse Ox 06/01/17 12:51 98.3 F 67 16 162/62 96 06/01/17 07:26 98.2 F 68 16 156/49 95 06/01/17 04:28 97.6 F 78 16 99/67 97 06/01/17 04:21 98 F 64 16 129/49 94 06/01/17 03:54 98 F 64 16 129/49 94 06/01/17 00:18 98.7 F 59 16 123/50 96 05/31/17 21:00 98 F 59 15 143/54 98 Intake and Output 06/01/17 06/01/17 06/01/17 07:59 15:59 23:59 Other: Stool Size Moderate Stool Consistency soft Stool Characteristics Normal for Patient Stool Color Brown # Voids 1 Weight 56.926 kg Blood Glucose* 111 Patient Weight 06/01/17 23:59 Weight 56.926 kg - Lab 06/01/17 07:21 06/01/17 07:21 Most recent lab results Calcium 8.8 mg/dL (8.6-10.8) 06/01/17 07:21 Phosphorus 3.8 mg/dL (2.3-4.7) 05/31/17 05:06 Magnesium 1.9 mg/dL (1.6-2.6) 05/31/17 05:06 Consult Discharge Plan - Plan Referrals: Lyle Caro MD [Primary Care Provider] -
[2017-06-01] MEDS: amLODIPine 5 MG TABLET PO SCH (17:30)
[2017-06-01] MEDS: Lisinopril 20 MG TABLET PO SCH (17:31)
[2017-06-02] MEDS: Insulin LISPRO 300 UNITS/3 ML VIAL SQ SCH ×5 (01:17→20:31)
[2017-06-02] MEDS: *HR* OxyCODONE/APAP 5/325 TABLET PO PRN (01:27)
[2017-06-02] MEDS: Piperacillin/Tazobactam 3.375 GM in 0.9 % Sodium Chloride Mini Bag 100 ML IVPB SCH ×2 (01:29→14:52)
[2017-06-02] MEDS: *HR* Heparin 5,000 UNIT/ML VIAL SQ SCH ×2 (06:42→18:41)
[2017-06-02] MEDS: Cholecalciferol (D-3) 1,000 UNIT TABLET PO SCH (08:12)
[2017-06-02] MEDS: Aspirin 81 MG TAB.CHEW PO SCH (08:12)
[2017-06-02] MEDS: amLODIPine 5 MG TABLET PO SCH (08:13)
[2017-06-02] MEDS: Lisinopril 20 MG TABLET PO SCH (08:13)
[2017-06-02] MEDS: Levofloxacin 500 MG/100 ML 500 MG/100 ML BAG IVPB SCH (08:14)
[2017-06-02] MEDS: Insulin DETEMIR 100 UNIT/ML X5UNITS SQ SCH (12:13)
--- NOTE | 2017-06-02 14:10 | Internal Med Progress Note ---
<Bala Alexander - Last Filed: 06/02/17 16:53> Date of Encounter: 06/02/17 - Constitutional Vitals: Temp Pulse Resp BP Pulse Ox 98.7 F 54 16 132/48 93 06/02/17 14:22 06/02/17 14:22 06/02/17 14:22 06/02/17 14:22 06/02/17 14:22 Internal Medicine: Result - Labs CBC & Chem 7: 06/01/17 07:21 06/01/17 07:21 Consult Discharge Plan - Plan Referrals: Lyle Caro MD [Primary Care Provider] - - Attending Attestation I performed an independent interview and exam of this patient. I agree with the findings, assessment, and plan of Dr. Jeffrey, help desk intern. Nephrology notes reviewed. Antibiotics De-escalated to Levaquin as monotherapy.. Nephrology input appreciated with next scheduled dialysis on Sunday. Patient is still quite weak and deconditioned. Her pneumonia appears to be improving. All else is outlined in today's note, I discussed the case with Dr. Jeffrey on rounds and I agree with her findings, assessment and plan, and my input is reflected in this. <Kaylan Pollack - Last Filed: 06/02/17 18:10> Date of Encounter: 06/02/17 Time of Encounter: 14:05 - Assessment and plan (1) Pneumonia Current Visit: Yes Status: Acute Assessment and plan: Chest x-ray performed on 05/29/17: Chemistry worsening pulmonary edema and developing right upper lobe infiltrate. Large left pleural effusion with consolidation in the left lung base. Repeat chest x-ray on 05/31/17: Improved right lung upper airspace opacity. Unchanged left basilar opacity with bilateral effusions, left greater than right. Cardiomegaly with mild interstitial edema. -White count on admission:WBC 14 -Patient is day 4 of IV antibiotics. -Blood culture was negative -06/02 stopped zosyn as pt is clinically improving and changed IV to PO Levaquin 500mg Q48H -supplemental O2 NC Qualifiers: Pneumonia type: due to unspecified organism Laterality: right Lung location: upper lobe of lung Qualified Code(s): J18.1 - Lobar pneumonia, unspecified organism (2) Hypertension Current Visit: Yes Status: Chronic Assessment and plan: BP 165/65 this morning -continue amlodipine, labetalol, lisinopril Qualifiers: Hypertension type: essential hypertension Qualified Code(s): I10 - Essential (primary) hypertension (3) Anemia Current Visit: Yes Status: Chronic Assessment and plan: Anemia in setting of ESRD. Last Hgb (8.8 on 06/01/17) was within her baseline. Qualifiers: Anemia type: iron deficiency Iron deficiency anemia type: unspecified iron deficiency Qualified Code(s): D50.9 - Iron deficiency anemia, unspecified (4) CKD (chronic kidney disease) stage 4, GFR 15-29 ml/min Current Visit: Yes Status: Chronic Assessment and plan: -s/p HD on Sunday, plan for Sunday HD. (5) Diabetes mellitus Current Visit: Yes Status: Chronic Assessment and plan: -SSI -ADA diet -continue to monitor blood glucose Qualifiers: Diabetes mellitus type: type 2 Diabetes mellitus complication status: with unspecified complications Diabetes mellitus intermediate manager insulin use: with intermediate manager use Qualified Code(s): E11.8 - Type 2 diabetes mellitus with unspecified complications; Z79.4 - manager intermediate (current) use of insulin - Subjective Interval history: Seen and examined this morning at bedside. Family present in room. Pt says she isn't feeling well today because she went to dialysis very late last night and didn't get done until after midnight; additionally, she is nauseous and believes it is from her medications. She denies chest pain, dyspnea, fever, chills, abdominal pain. - Constitutional Vitals: Temp Pulse Resp BP Pulse Ox 98.3 F 59 17 134/58 96 06/02/17 11:40 06/02/17 11:40 06/02/17 11:40 06/02/17 11:40 06/02/17 11:40 General appearance: Present: A&O X 3, no acute distress, answers questions appropriately - Head Head exam: Present: normal inspection - Neck Neck exam general surgery: Present: full ROM, supple - Respiratory Respiratory exam: Absent: accessory muscle use, respiratory distress Additional comments: bibasilar crackles Lt > Rt - Cardiovascular Cardiovascular exam: Present: RRR, +S1, +S2 - GI/Abdominal GI/Abdominal exam: Present: normal bowel sounds - Extremities Exam Extremities exam: Present: warm. Absent: pedal edema Additional comments: equal DP pulses - Neurological Exam Neurological exam: Present: oriented X3, no focal deficits. Absent: facial droop, speech deficit Internal Medicine: Result - Labs CBC & Chem 7: 06/01/17 07:21 06/01/17 07:21
--- NOTE | 2017-06-02 16:48 | Nephrology Progress Note ---
Date of Encounter: 06/02/17 Time of Encounter: 12:00 - Assessment and Plan (1) End stage renal disease on dialysis Current Visit: No Status: Chronic s/p HD yesterday, next HD planned for sunday No new labs today (2) Pneumonia Current Visit: Yes Status: Acute Continue abx per primary team Qualifiers: Pneumonia type: due to unspecified organism Laterality: right Lung location: upper lobe of lung Qualified Code(s): J18.1 - Lobar pneumonia, unspecified organism Subjective Interval history: Pt seen and examined with family at bedside, feeling better. No new complaints but still alittle nauseous, improved Objective - Vital Signs Vital signs: Vital Signs Temp Pulse Resp BP Pulse Ox 06/02/17 14:22 98.7 F 54 16 132/48 93 06/02/17 11:40 98.3 F 59 17 134/58 96 06/02/17 10:10 98.4 F 59 16 152/52 96 06/02/17 04:19 98.7 F 65 16 165/65 98 06/01/17 23:50 97.7 F 16 162/64 06/01/17 23:35 139/57 06/01/17 23:05 135/53 06/01/17 22:35 144/66 06/01/17 22:05 143/58 06/01/17 21:35 147/61 06/01/17 21:05 165/64 06/01/17 20:35 98.2 F 18 174/86 06/01/17 19:10 98.4 F 69 16 180/70 93 Intake and Output 06/02/17 06/02/17 06/02/17 07:59 15:59 23:59 Intake Total 100 / 100 540 / 540 Balance 100 / 100 540 / 540 Intake: IV Fluids 100 / 100 Zosyn 3.375 GM In 0.9 % Sodium 100 / 100 Chloride (Mini-Bag +) 100 ML @ 25 mls/hr IVPB Q12H [facility] Rx#: [id number] Oral 540 / 540 Other: Meal Lunch Percent of Meal Consumed 40% Weight 57.3 kg Blood Glucose* 91 291 Patient Weight 06/02/17 23:59 Weight 57.3 kg - General Appearance General appearance: Present: frail (NAD) EENT: Present: ATNC, mucous membranes moist Neck: Present: no JVD, supple Respiratory: Present: clear Cardiology: Present: no edema, normal S1, normal S2 Dialysis Vascular Access: Arteriovenous Fistula thrill: Yes bruit: Yes Gastrointestinal: Present: no tenderness, no guarding Integumentary: Present: warm and dry Neurologic: Present: no focal deficit Musculoskeletal: Present: no deformities Psychiatric: Present: mood/affect appropriate - Lab 06/04/17 03:35 06/04/17 03:35 Most recent lab results Calcium 8.8 mg/dL (8.6-10.8) 06/01/17 07:21 Phosphorus 3.8 mg/dL (2.3-4.7) 05/31/17 05:06 Magnesium 1.9 mg/dL (1.6-2.6) 05/31/17 05:06 Consult Discharge Plan - Plan Referrals: Lyle Caro MD [Primary Care Provider] -
[2017-06-03] MEDS: Acetaminophen 325 MG TABLET PO PRN (03:51)
[2017-06-03] MEDS: *HR* OxyCODONE/APAP 5/325 TABLET PO PRN (05:08)
[2017-06-03 05:33] LABS: Hematocrit 28.3 % (35.3-44.9); Hemoglobin 9.5 g/dL (11.5-15.4); Mean Corpuscular HGB Conc 33.6 g/dL (31.6-35.5); Mean Corpuscular Hemoglobin 29.6 pg (28.0-33.3); Mean Corpuscular Volume 88.2 fL (83.0-100.0); Mean Platelet Volume 10.2 fL (9.4-12.4); Platelet Count 254 K/mcL (140-400); Red Blood Count 3.21 M/mcL (3.82-4.97)
[2017-06-03 05:50] LABS: Calcium 9.6 mg/dL (8.6-10.8); Potassium 4.1 mEq/L (3.5-4.5)
[2017-06-03] MEDS: *HR* Heparin 5,000 UNIT/ML VIAL SQ SCH ×2 (06:04→17:47)
[2017-06-03] MEDS: Insulin LISPRO 300 UNITS/3 ML VIAL SQ SCH ×4 (08:06→22:52)
[2017-06-03] MEDS: Insulin DETEMIR 100 UNIT/ML X5UNITS SQ SCH (09:14)
[2017-06-03] MEDS: Aspirin 81 MG TAB.CHEW PO SCH (09:14)
[2017-06-03] MEDS: amLODIPine 5 MG TABLET PO SCH (09:15)
[2017-06-03] MEDS: Cholecalciferol (D-3) 1,000 UNIT TABLET PO SCH (09:15)
[2017-06-03] MEDS: Lisinopril 20 MG TABLET PO SCH (09:15)
--- NOTE | 2017-06-03 13:16 | Internal Med Progress Note ---
<Kaylan Pollack - Last Filed: 06/03/17 13:15> Date of Encounter: 06/03/17 - Assessment and plan (1) Pneumonia Current Visit: Yes Status: Acute Qualifiers: Pneumonia type: due to unspecified organism Laterality: right Lung location: upper lobe of lung Qualified Code(s): J18.1 - Lobar pneumonia, unspecified organism (2) Hypertension Current Visit: Yes Status: Chronic Qualifiers: Hypertension type: essential hypertension Qualified Code(s): I10 - Essential (primary) hypertension (3) Anemia Current Visit: Yes Status: Chronic Qualifiers: Anemia type: iron deficiency Iron deficiency anemia type: unspecified iron deficiency Qualified Code(s): D50.9 - Iron deficiency anemia, unspecified (4) CKD (chronic kidney disease) stage 4, GFR 15-29 ml/min Current Visit: Yes Status: Chronic (5) Diabetes mellitus Current Visit: Yes Status: Chronic Qualifiers: Diabetes mellitus type: type 2 Diabetes mellitus complication status: with unspecified complications Diabetes mellitus exterminator insulin use: with exterminator use Qualified Code(s): E11.8 - Type 2 diabetes mellitus with unspecified complications; Z79.4 - senior living (current) use of insulin - Subjective Interval history: Seen and examined this morning at bedside. Family present in room. Pt says she isn't feeling well today because she went to dialysis very late last night and didn't get done until after midnight; additionally, she is nauseous and believes it is from her medications. She denies chest pain, dyspnea, fever, chills, abdominal pain. - Constitutional Vitals: Temp Pulse Resp BP Pulse Ox 98.0 F 59 14 161/58 98 06/03/17 10:20 06/03/17 10:20 06/03/17 10:20 06/03/17 10:20 06/03/17 10:20 General appearance: Present: A&O X 3, no acute distress, answers questions appropriately Internal Medicine: Result - Labs CBC & Chem 7: 06/03/17 05:25 06/03/17 05:25 Labs: Short CBC 06/03/17 Range/Units 05:25 WBC 13.4 H (4.3-11.1) K/mcL Hgb 9.5 L (11.5-15.4) g/dL Hct 28.3 L (35.3-44.9) % Plt Count 254 (140-400) K/mcL [facility] 06/03/17 05:25 Sodium 133 L Potassium 4.1 Chloride 95 L Carbon Dioxide 30 H BUN 43 H Creatinine 4.08 H Glucose 118 H Calcium 9.6 Consult Discharge Plan - Plan Referrals: Lyel Caro MD [Primary Care Provider] - <Bala Alexander - Last Filed: 06/03/17 15:10> Date of Encounter: 06/03/17 Time of Encounter: 11:00 - Constitutional Vitals: Temp Pulse Resp BP Pulse Ox 98.0 F 59 14 161/58 98 06/03/17 10:20 06/03/17 10:20 06/03/17 10:20 06/03/17 10:20 06/03/17 10:20 Internal Medicine: Result - Labs CBC & Chem 7: 06/03/17 05:25 06/03/17 05:25 Labs: Short CBC 06/03/17 Range/Units 05:25 WBC 13.4 H (4.3-11.1) K/mcL Hgb 9.5 L (11.5-15.4) g/dL Hct 28.3 L (35.3-44.9) % Plt Count 254 (140-400) K/mcL [facility] 06/03/17 05:25 Sodium 133 L Potassium 4.1 Chloride 95 L Carbon Dioxide 30 H BUN 43 H Creatinine 4.08 H Glucose 118 H Calcium 9.6 - Attending Attestation I performed an independent interview and exam of this patient. I agree with the findings, assessment, and plan of Dr. Jeffrey, architect intern. Nephrology notes reviewed. Antibiotics De-escalated to Levaquin as monotherapy. Nephrology input appreciated with next scheduled dialysis on Sunday. Patient is still quite weak and deconditioned. Her pneumonia appears to be improving. nausea is better. Increase activity. Antic dc after HD tomorrow and PT eval.
[2017-06-03] MEDS: Piperacillin/Tazobactam 3.375 GM in 0.9 % Sodium Chloride Mini Bag 100 ML IVPB SCH (19:32)
[2017-06-03] MEDS: traMADol 50 MG TABLET PO PRN (22:58)
[2017-06-04 03:41] LABS: Hematocrit 27.8 % (35.3-44.9); Hemoglobin 9.5 g/dL (11.5-15.4); Mean Corpuscular HGB Conc 34.2 g/dL (31.6-35.5); Mean Corpuscular Volume 87.7 fL (83.0-100.0); Mean Platelet Volume 10.3 fL (9.4-12.4); Platelet Count 258 K/mcL (140-400); Red Blood Count 3.17 M/mcL (3.82-4.97)
[2017-06-04 04:11] LABS: Calcium 9.8 mg/dL (8.6-10.8); Potassium 4.3 mEq/L (3.5-4.5)
[2017-06-04] MEDS: *HR* Heparin 5,000 UNIT/ML VIAL SQ SCH ×2 (06:22→17:12)
[2017-06-04] MEDS ORDERED: 0.9 % Sodium Chloride 250 ML IVC PRN (08:23)
[2017-06-04] MEDS: Lisinopril 20 MG TABLET PO SCH (08:35)
[2017-06-04] MEDS: Aspirin 81 MG TAB.CHEW PO SCH (08:35)
[2017-06-04] MEDS: Cholecalciferol (D-3) 1,000 UNIT TABLET PO SCH (08:35)
[2017-06-04] MEDS: Insulin LISPRO 300 UNITS/3 ML VIAL SQ SCH ×4 (08:35→21:39)
[2017-06-04] MEDS: Insulin DETEMIR 100 UNIT/ML X5UNITS SQ SCH (10:32)
--- NOTE | 2017-06-04 11:43 | Nephrology Progress Note ---
Date of Encounter: 06/04/17 Time of Encounter: 11:39 - Assessment and Plan (1) Anemia Current Visit: No Status: Chronic Qualifiers: Anemia type: other cause Other causes of anemia: other cause, not classified Qualified Code(s): D64.89 - Other specified anemias (2) Diabetes mellitus Current Visit: Yes Status: Chronic Qualifiers: Diabetes mellitus type: type 2 Diabetes mellitus complication status: with unspecified complications Diabetes mellitus intermission coordinator insulin use: with assisted use Qualified Code(s): E11.8 - Type 2 diabetes mellitus with unspecified complications; Z79.4 - custodial (current) use of insulin (3) End stage renal disease on dialysis Current Visit: No Status: Chronic HD MWF. Patient seen on dialysis. Renal diet. Dose medications for renal function. (4) HTN (hypertension) Current Visit: No Status: Chronic Qualifiers: Hypertension type: essential hypertension Qualified Code(s): I10 - Essential (primary) hypertension Subjective Principal diagnosis: ESRD Interval history: Patient seen while on dialysis. She has no new complaint. She is concerned about going home since she has not been out of bed. Otherwise she has no complaints. Objective - Vital Signs Vital signs: Vital Signs Temp Pulse Resp BP Pulse Ox 06/04/17 07:58 98.2 F 70 15 171/58 94 06/04/17 05:57 98.1 F 68 14 144/75 95 06/04/17 00:50 98.5 F 66 14 156/56 95 06/03/17 21:19 98.6 F 64 16 136/50 95 Intake and Output 06/03/17 06/04/17 06/04/17 23:59 07:59 15:59 Intake Total 120 / 120 0 / 0 Output Total 0 / 0 Balance 120 / 120 0 / 0 Intake: Oral 120 / 120 0 / 0 Output: Urine 0 / 0 Other: Weight 56.1 kg Blood Glucose* 194 151 Patient Weight 06/04/17 23:59 Weight 56.1 kg - General Appearance General appearance: Present: well-developed, well-nourished EENT: Present: ATNC Neck: Present: supple Respiratory: Present: clear Cardiology: Present: no edema Integumentary: Present: warm and dry Neurologic: Present: alert and oriented x3 Musculoskeletal: Present: no cyanosis Psychiatric: Present: mood/affect appropriate - Lab 06/04/17 03:35 06/04/17 03:35 Most recent lab results Calcium 9.8 mg/dL (8.6-10.8) 06/04/17 03:35 Phosphorus 3.8 mg/dL (2.3-4.7) 05/31/17 05:06 Magnesium 1.9 mg/dL (1.6-2.6) 05/31/17 05:06 Consult Discharge Plan - Plan Referrals: Lyle Caro MD [Primary Care Provider] -
[2017-06-04] MEDS: amLODIPine 5 MG TABLET PO SCH (14:25)
[2017-06-04] MEDS: traMADol 50 MG TABLET PO PRN (14:32)
--- NOTE | 2017-06-04 16:52 | Discharge Summary ---
Date of Encounter: 06/04/17 - Discharge Medications Home Medications: Cholecalciferol (Vitamin D3) [Vitamin D] 1,000 units PO QAM 05/06/15 [History] Glimepiride [Amaryl] 4 mg PO QAM 05/06/15 [History] Insulin DETEMIR [Levemir] 12 unit SQ DAILY 05/06/15 [History] Labetalol [Trandate] 100 mg PO QPM 06/15/16 [History] Omeprazole [PriLOSEC] 20 mg PO QAM 06/15/16 [History] Lovastatin [Mevacor] 20 mg PO HS #30 tablet 06/30/16 [Rx] Amlodipine Besylate 10 mg PO QAM 07/20/16 [History] Aspirin Enteric Coated [Aspirin EC] 81 mg PO QAM 07/20/16 [History] Lisinopril [Zestril] 20 mg PO QAM 07/20/16 [History] Allergies/Adverse Reactions: 3 Allergy/AdvReac Type Severity Reaction Status Date / Time Cefaclor [From Ceclor] Allergy Unknown Rash Verified 05/06/15 12:36 cephalexin Allergy Unknown Rash Verified 05/06/15 12:36 orphenadrine [From Norflex] Allergy Unknown Rash Verified 05/06/15 12:36 rofecoxib [From Vioxx] Allergy Unknown Rash Verified 05/06/15 12:36 sulfamethoxazole Allergy Unknown Rash Verified 05/06/15 12:36 [From Bactrim] trimethoprim [From Bactrim] Allergy Unknown Rash Verified 05/06/15 12:36 valdecoxib [From Bextra] Allergy Unknown Rash Verified 05/06/15 12:36 atorvastatin [From Lipitor] AdvReac Muscle Pain Verified 06/28/16 01:06 Date of admission: 05/29/17 01:24 Primary care physician: Lyle Caro MD Consults: 05/29/17 05:06 Consult to Nephrology [CONS] Routine Consulting Provider: Kidney Savana/NEIL/GALEN/CLEMENT Reason for Consult: ESRD on HD Call Completed: Yes 05/30/17 08:15 Consult to Dialysis [CONS] ONCE 05/30/17 08:48 Consult to Invasive Line Access Team [CONS] Routine Reason for Consult: Powerglide insertion Line Type: EPIV 05/30/17 10:11 Consult to Physical Therapy [CONS] Routine Comment: Evaluate, develop and implement POC Reason for Consult: evaluate for placement 06/01/17 12:15 Consult to Dialysis [CONS] ONCE 06/04/17 08:30 Consult to Dialysis [CONS] ONCE - Discharge Instructions Follow Up With: Lyle Caro MD [Primary Care Provider] - Hospital course: Ms. Freeman is a 86 year old female - Time Spent with Patient Total time spent providing and/or coordinating discharge services: - Constitutional Vitals: Temp Pulse Resp BP Pulse Ox 98.3 F 70 20 152/70 94 06/04/17 12:50 06/04/17 07:58 06/04/17 12:50 06/04/17 12:50 06/04/17 07:58 General appearance: Present: A&O X 3, no acute distress, answers questions appropriately
[2017-06-04] MEDS ORDERED: levoFLOXacin 500 MG TABLET PO SCH (17:15)
--- NOTE | 2017-06-04 18:26 | Internal Med Progress Note ---
Date of Encounter: 06/04/17 Time of Encounter: 17:35 - Assessment and plan (1) Dysphagia Current Visit: Yes Status: Acute Qualifiers: Dysphagia type: unspecified Qualified Code(s): R13.10 - Dysphagia, unspecified (2) Diabetes Current Visit: No Status: Chronic Qualifiers: Diabetes mellitus type: type 2 Diabetes mellitus complication status: without complication Diabetes mellitus extermination inspector insulin use: with correction use Qualified Code(s): E11.9 - Type 2 diabetes mellitus without complications ; Z79.4 - roasterman (current) use of insulin (3) CKD (chronic kidney disease) stage 4, GFR 15-29 ml/min Current Visit: Yes Status: Chronic (4) Diastolic heart failure Current Visit: No Status: Acute Qualifiers: Heart failure chronicity: acute Qualified Code(s): I50.31 - Acute diastolic (congestive) heart failure - Time Spent With Patient Patient continued to have leukocytosis which is trending up in view of her possible dysphagia ,We will consult speech therapy, check chest x-ray, add clindamycin for possible aspiration pneumonia patient is allergic to Keflex, high risk to start Zosyn. Recheck CBC next morning, physical therapy consult, ambulate patient, monitor for any fever for next 24-hour . Needs home health care on discharge 25 - 35 minutes - Subjective Interval history: Patient is feeling tired and fatigued today, patient stated that during dialysis he have to slow down because patient was feeling sick to her stomach. Patient had episode where she had CHOCK on her food occasionally - Constitutional Vitals: Temp Pulse Resp BP Pulse Ox 98.1 F 65 20 150/61 92 06/04/17 16:54 06/04/17 16:54 06/04/17 12:50 06/04/17 16:54 06/04/17 16:54 General appearance: Present: A&O X 3, no acute distress, answers questions appropriately - Neck Neck exam general surgery: Present: supple, trachea midline. Absent: lymphadenopathy - Respiratory Respiratory exam: Present: decreased breath sounds, prolonged expiratory phase, rales Additional comments: Crackles bilateral lung bases - Cardiovascular Cardiovascular exam: Present: diastolic murmur, RRR, +S1, +S2. Absent: gallop, rubs, systolic murmur - GI/Abdominal GI/Abdominal exam: Present: normal bowel sounds, soft, no peritoneal signs. Absent: distended, tenderness - Extremities Exam Extremities exam: Present: warm. Absent: cyanotic, pedal edema - Neurological Exam Neurological exam: Present: CN II-XII intact, no focal deficits. Absent: pronater drift, facial droop, speech deficit Internal Medicine: Result - Labs CBC & Chem 7: 06/04/17 03:35 06/04/17 03:35 Labs: Short CBC 06/04/17 Range/Units 03:35 WBC 15.9 H (4.3-11.1) K/mcL Hgb 9.5 L (11.5-15.4) g/dL Hct 27.8 L (35.3-44.9) % Plt Count 258 (140-400) K/mcL BMP 06/04/17 03:35 Sodium 131 L Potassium 4.3 Chloride 93 L Carbon Dioxide 27 BUN 60 H D Creatinine 5.18 H Glucose 167 H Calcium 9.8 Consult Discharge Plan - Plan Referrals: Lyle Caro MD [Primary Care Provider] -
[2017-06-04] MEDS ORDERED: 0.9 % Sodium Chloride 2,000 ML ONE (18:46)
[2017-06-04] MEDS: Acetaminophen 325 MG TABLET PO PRN (21:34)
[2017-06-05] MEDS: *HR* OxyCODONE/APAP 5/325 TABLET PO PRN (00:31)
[2017-06-05] MEDS: *HR* Heparin 5,000 UNIT/ML VIAL SQ SCH ×2 (05:42→18:02)
[2017-06-05] MEDS: Insulin LISPRO 300 UNITS/3 ML VIAL SQ SCH ×4 (08:22→21:40)
[2017-06-05] MEDS: Lisinopril 20 MG TABLET PO SCH (08:26)
[2017-06-05] MEDS: amLODIPine 5 MG TABLET PO SCH (08:26)
[2017-06-05] MEDS: Cholecalciferol (D-3) 1,000 UNIT TABLET PO SCH (08:26)
[2017-06-05] MEDS: Insulin DETEMIR 100 UNIT/ML X5UNITS SQ SCH (08:26)
[2017-06-05] MEDS: Aspirin 81 MG TAB.CHEW PO SCH (08:26)
--- NOTE | 2017-06-05 10:53 | Nephrology Progress Note ---
Date of Encounter: 06/05/17 Time of Encounter: 10:50 - Assessment and Plan (1) ESRD (end stage renal disease) on dialysis Current Visit: No Status: Chronic Plan for HD tomorrow Continue renal diet Avoid nephrotoxins if possible Since patient is going home I advised patient to have home health and possible physical therapy come in to help her with her recovery; patient is now agreeable to these services if they are covered by her insurance. (2) HTN (hypertension) Current Visit: No Status: Chronic per primary team Qualifiers: Hypertension type: essential hypertension Qualified Code(s): I10 - Essential (primary) hypertension Subjective Principal diagnosis: ESRD Interval history: Patient seen and examined. Sitting up in chair, feeling better. Objective - Vital Signs Vital signs: Vital Signs Temp Pulse Resp BP Pulse Ox 06/05/17 06:42 98.0 F 64 17 152/47 93 06/05/17 04:59 98.1 F 58 16 136/54 94 06/05/17 00:34 98.5 F 55 16 139/51 96 06/04/17 21:29 98.7 F 64 16 151/56 94 06/04/17 16:54 98.1 F 65 150/61 92 06/04/17 12:50 98.3 F 20 152/70 06/04/17 12:35 120/48 06/04/17 12:25 122/50 06/04/17 12:10 137/54 06/04/17 11:55 158/71 06/04/17 11:40 163/53 06/04/17 11:25 146/63 06/04/17 11:10 138/58 06/04/17 10:55 127/58 Intake and Output 06/04/17 06/05/17 06/05/17 23:59 07:59 15:59 Intake Total 120 / 120 0 / 0 120 / 120 Balance 120 / 120 0 / 0 120 / 120 Intake: Oral 120 / 120 0 / 0 120 / 120 Other: Meal Breakfast Percent of Meal Consumed 5% Weight 54.431 kg Blood Glucose* 121 89 Patient Weight 06/05/17 23:59 Weight 54.431 kg - General Appearance General appearance: Present: well-developed, well-nourished EENT: Present: ATNC, mucous membranes moist, hearing intact, vision intact Neck: Present: supple Respiratory: Present: clear Cardiology: Present: no edema, normal S1, normal S2 Dialysis Vascular Access: Arteriovenous Fistula Gastrointestinal: Present: no tenderness, no guarding Integumentary: Present: warm and dry Neurologic: Present: alert and oriented x3 Psychiatric: Present: mood/affect appropriate, cooperative - Lab 06/04/17 03:35 06/04/17 03:35 Most recent lab results Calcium 9.8 mg/dL (8.6-10.8) 06/04/17 03:35 Phosphorus 3.8 mg/dL (2.3-4.7) 05/31/17 05:06 Magnesium 1.9 mg/dL (1.6-2.6) 05/31/17 05:06 Consult Discharge Plan - Plan Referrals: Lyle Caro MD [Primary Care Provider] -
--- NOTE | 2017-06-05 14:54 | Internal Med Progress Note ---
<Ronan Horn - Last Filed: 06/05/17 16:26> Date of Encounter: 06/05/17 - Constitutional Vitals: Temp Pulse Resp BP Pulse Ox 98.2 F 57 17 150/47 97 06/05/17 16:03 06/05/17 16:03 06/05/17 16:03 06/05/17 16:03 06/05/17 16:03 Internal Medicine: Result - Labs CBC & Chem 7: 06/04/17 03:35 06/04/17 03:35 Consult Discharge Plan - Plan Referrals: Lyle Caro MD [Primary Care Provider] - - Attending Attestation I independently saw and examined this patient on 06/05/17, plan of care is as detailed in the resident physician's documentation patient is sitting comfortably out of chair during eval, clinically stable, no O2 requirements Denies choking, denies dysphagia, complaining of abdominal pain, abdomen exam is benign Suspect aspiration, add clindamycin, speech and swallow eval Rest as in resident physician's documentation <Angel Garvey - Last Filed: 06/05/17 16:44> Date of Encounter: 06/05/17 Time of Encounter: 09:45 - Assessment and plan (1) Pneumonia Current Visit: Yes Status: Acute Assessment and plan: Initial CXR 05/29/17: Worsening pulmonary edema; developing RUL infiltrate. Large L-sided pleural effusion w/ consolidation of L lung base. Repeat CXR 05/31/17: Improved R lung airspace obesity. Unchanged L basilar obesity with bilateral effusions, L greater than R. WC on presentation was 16.7, Decreased to 10.1 on 05/31/17; began to rise, was 15.9 this morning. Patient had several episodes of choking on her food and difficulty swallowing over the last few days; suspicion for aspiration pneumonia. Vancomycin was d/c 05/30/17; Zosyn d/c 06/02/17. Patient no longer on O2 via NC. O2 sat this morning was 93. Blood cx negative Plan: -Clindamycin 600 mg PO TID will be added today -Continue Levaquin 500 mg by PO Q48 hours (day 8 abx). PO form of Levaquin was started on 06/04/17. -DuoNeb 3 mL IH Q4 PRN Qualifiers: Pneumonia type: due to unspecified organism Laterality: right Lung location: upper lobe of lung Qualified Code(s): J18.1 - Lobar pneumonia, unspecified organism (2) HTN (hypertension) Current Visit: No Status: Chronic Assessment and plan: BP this morning was 152/147. -Norvasc 10 mg PO daily -Lisinopril 20 mg PO daily -Labetalol 100 mg PO daily Qualifiers: Hypertension type: essential hypertension Qualified Code(s): I10 - Essential (primary) hypertension (3) Anemia Current Visit: No Status: Chronic Assessment and plan: Secondary to chronic kidney disease -H&H low but acceptable -Continue to monitor -Patient's last hemoglobin was 9.5; repeat a.m. labs. Qualifiers: Anemia type: other cause Other causes of anemia: other cause, not classified Qualified Code(s): D64.89 - Other specified anemias (4) CKD (chronic kidney disease) stage 4, GFR 15-29 ml/min Current Visit: Yes Status: Chronic Assessment and plan: Patient has a known history of chronic kidney disease. -Patient is a MWF dialysis patient; patient is compliant with dialysis. -Per nephrology, patient is scheduled to go to hemodialysis tomorrow. -Continue renal diet. -Avoid nephrotoxins if possible. (5) Diabetes mellitus Current Visit: Yes Status: Chronic Assessment and plan: Sliding scale insulin. -Patient's last glucose was 167; repeat a.m. labs. -ADA diet -continue to monitor blood glucose Qualifiers: Diabetes mellitus type: type 2 Diabetes mellitus complication status: with unspecified complications Diabetes mellitus residential insulin use: with residential use Qualified Code(s): E11.8 - Type 2 diabetes mellitus with unspecified complications; Z79.4 - [facility] (current) use of insulin (6) Dysphagia Current Visit: Yes Status: Acute Assessment and plan: Patient has had several episodes of choking on her food and difficulty swallowing over the past few days. -Speech therapy will evaluate for possible dysphagia. -Suspicion is that patient has aspiration pneumonia; will add clindamycin 600 mg TID to patient's current ABX regimen. -Patient will still continue her 10 day course of Levaquin. Qualifiers: Qualified Code(s): R13.10 - Dysphagia, unspecified (7) DVT prophylaxis Current Visit: No Status: Acute Assessment and plan: Heparin 5000 SQ 12 - Subjective Interval history: Patient is an 86-year-old female who presented on 05/29/17 with chief complaint of SOB x 3 days. On presentation, patient was lethargic and weak. She had a runny nose and nonproductive cough. CXR was ordered on 05/29/17; showed worsening pulmonary edema and developing right upper lobe infiltrate, concerning for pneumonia. She also had a large left sided pleural effusion with consolidation in the left lung base. Elevated respirations at 22, white count 14. Patient was initially started on vancomycin, Zosyn. She was initially put on 2 L of oxygen. A repeat x-ray was performed in 05/31/17. Demonstrated improving right lung airspace opacity. Unchanged left basilar opacity with bilateral effusions, left greater than right. Patient has a known history of CKD stage 4; MWF dialysis patient. Vancomycin was discontinued on 05/30/17. Levaquin was started on 05/31/17. Antibiotics will be escalated on 06/02/17 to Levaquin as monotherapy. Patient's white count on admission was 16.7. Was steadily decreasing until ; went from 10.1-12.3. Today patient's white count is 15.9. Patient developed dysphagia and has had several episodes of choking over the last few days. Patient was seen and examined at bedside this morning. She reports that she is feeling slightly better than she did yesterday. Patient reports that she has had several episodes of painful swallowing. She denies choking on food today. She has been able to eat without difficulty. She is not feeling short of breath at the moment. She is not currently wearing oxygen. Denies fever, chills, cough, productive sputum. She has no complaints at this time. - Constitutional Vitals: Temp Pulse Resp BP Pulse Ox 98.3 F 54 16 148/47 95 06/05/17 10:56 06/05/17 10:56 06/05/17 10:56 06/05/17 10:56 06/05/17 10:56 General appearance: Present: A&O X 3, no acute distress, answers questions appropriately - Head Head exam: Present: atraumatic, normocephalic - Eye Eye exam: Present: PERRL, conjuntiva pink, sclera anicteric Pupils: Present: PERRL - Neck Neck exam general surgery: Present: supple, trachea midline. Absent: lymphadenopathy - Respiratory Respiratory exam: Present: rales, rhonchi. Absent: accessory muscle use, wheezes Additional comments: Patient has crackles bilaterally in all lung [place]. Shortened inspiratory phase. - Cardiovascular Cardiovascular exam: Present: RRR, +S1, +S2. Absent: diastolic murmur, gallop, rubs, systolic murmur - Extremities Exam Extremities exam: Present: warm, radial pulses palpable and symmetrical. Absent : calf tenderness, cyanotic, pedal edema - Skin Skin exam: Present: dry, intact Internal Medicine: Result - Labs CBC & Chem 7: 06/04/17 03:35 06/04/17 03:35
[2017-06-05] MEDS ORDERED: Clindamycin 600 MG/50 ML 600 MG/50 ML IV.SOLN IVPB SCH (16:00)
[2017-06-06 05:33] LABS: Hematocrit 26.8 % (35.3-44.9); Hemoglobin 8.9 g/dL (11.5-15.4); Mean Corpuscular HGB Conc 33.2 g/dL (31.6-35.5); Mean Corpuscular Hemoglobin 29.5 pg (28.0-33.3); Mean Corpuscular Volume 88.7 fL (83.0-100.0); Mean Platelet Volume 10.9 fL (9.4-12.4); Platelet Count 227 K/mcL (140-400); Red Blood Count 3.02 M/mcL (3.82-4.97); Red Cell Distribution Width 13.3 % (11.5-14.5)
[2017-06-06 05:47] LABS: Calcium 9.2 mg/dL (8.6-10.8); Potassium 3.8 mEq/L (3.5-4.5)
[2017-06-06] MEDS: *HR* Heparin 5,000 UNIT/ML VIAL SQ SCH (07:29)
[2017-06-06] MEDS ORDERED: 0.9 % Sodium Chloride 250 ML IVC PRN (08:00)
[2017-06-06] MEDS: Aspirin 81 MG TAB.CHEW PO SCH (09:07)
[2017-06-06] MEDS: Cholecalciferol (D-3) 1,000 UNIT TABLET PO SCH (09:07)
[2017-06-06] MEDS: Insulin DETEMIR 100 UNIT/ML X5UNITS SQ SCH (09:08)
[2017-06-06] MEDS: Insulin LISPRO 300 UNITS/3 ML VIAL SQ SCH (09:09)
[2017-06-06] MEDS ORDERED: 0.9 % Sodium Chloride 2,000 ML ONE (12:22)
--- NOTE | 2017-06-06 13:16 | Discharge Summary ---
<Ronan Horn T - Last Filed: 06/06/17 16:08> Date of Encounter: 06/06/17 - Discharge Medications Home Medications: Cholecalciferol (Vitamin D3) [Vitamin D] 1,000 units PO QAM 05/06/15 [History] Glimepiride [Amaryl] 4 mg PO QAM 05/06/15 [History] Insulin DETEMIR [Levemir] 12 unit SQ DAILY 05/06/15 [History] Labetalol [Trandate] 100 mg PO QPM 06/15/16 [History] Omeprazole [PriLOSEC] 20 mg PO QAM 06/15/16 [History] Lovastatin [Mevacor] 20 mg PO HS #30 tablet 06/30/16 [Rx] Amlodipine Besylate 10 mg PO QAM 07/20/16 [History] Aspirin Enteric Coated [Aspirin EC] 81 mg PO QAM 07/20/16 [History] Lisinopril [Zestril] 20 mg PO QAM 07/20/16 [History] Allergies/Adverse Reactions: 3 Allergy/AdvReac Type Severity Reaction Status Date / Time Cefaclor [From Ceclor] Allergy Unknown Rash Verified 05/06/15 12:36 cephalexin Allergy Unknown Rash Verified 05/06/15 12:36 orphenadrine [From Norflex] Allergy Unknown Rash Verified 05/06/15 12:36 rofecoxib [From Vioxx] Allergy Unknown Rash Verified 05/06/15 12:36 sulfamethoxazole Allergy Unknown Rash Verified 05/06/15 12:36 [From Bactrim] trimethoprim [From Bactrim] Allergy Unknown Rash Verified 05/06/15 12:36 valdecoxib [From Bextra] Allergy Unknown Rash Verified 05/06/15 12:36 atorvastatin [From Lipitor] AdvReac Muscle Pain Verified 06/28/16 01:06 Date of admission: 05/29/17 01:24 Primary care physician: Lyle Caro MD Consults: 05/29/17 05:06 Consult to Nephrology [CONS] Routine Consulting Provider: Kidney Savana/NEIL/GALEN/CLEMENT Reason for Consult: ESRD on HD Call Completed: Yes 05/30/17 08:15 Consult to Dialysis [CONS] ONCE 05/30/17 08:48 Consult to Invasive Line Access Team [CONS] Routine Reason for Consult: Powerglide insertion Line Type: EPIV 05/30/17 10:11 Consult to Physical Therapy [CONS] Routine Comment: Evaluate, develop and implement POC Reason for Consult: evaluate for placement 06/01/17 12:15 Consult to Dialysis [CONS] ONCE 06/04/17 08:30 Consult to Dialysis [CONS] ONCE 06/05/17 15:13 Consult to Speech Therapy [CONS] Routine Comment: Evaluate, develop and implement POC Reason for Consult: Patient has had several episodes of dysphagia and choking on food for the last several days; will likely need swallow eval Call Completed: No 06/06/17 08:15 Consult to Dialysis [CONS] ONCE - Patient Status Disposition: Home, Self-Care Condition: Fair - Discharge Instructions Instructions: Chronic Dysphagia (DC), Pneumonia (DC) Follow Up With: Lyle Caro MD [Primary Care Provider] - Hospital course: Ms. Freeman is a 86 year old female - Time Spent with Patient Total time spent providing and/or coordinating discharge services: Greater than 30 minutes - Constitutional Vitals: Temp Pulse Resp BP Pulse Ox 98.5 F 51 16 153/62 94 06/06/17 07:51 06/06/17 07:51 06/06/17 07:51 06/06/17 07:51 06/06/17 07:51 - Attending Attestation I independently saw and examined this patient on 06/06/17, plan of care is as detailed in the resident physician's documentation Seen and evaluated during HD She has no new complains, she believes the antibiotics are giving her heartburn , no complains of dysphagia or choking on her meals. 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 Abdomen is benign. NO edema Labs and Imaging reviewed: Leukocytosis is improving, Chem is at baseline she is stable to be discharged on home medications after HD. She has completed 10 days of Levaquin, no evidence of aspiration, d/c clindamycin Rest of details as in resident physician's documentation <Angel Garvey - Last Filed: 06/06/17 16:19> Date of Encounter: 06/06/17 Time of Encounter: 11:30 - Discharge Diagnosis (1) Pneumonia Priority: Primary Status: Acute Comments: Patient has completed a 10 day course of antibiotics; will not be d/c on antibiotics. -D/C Clindamycin. -Patient's WC is improvin.9 yesterday, 11.2 today Qualifiers: Pneumonia type: due to unspecified organism Laterality: right Lung location: upper lobe of lung Qualified Code(s): J18.1 - Lobar pneumonia, unspecified organism (2) HTN (hypertension) Priority: Secondary Status: Chronic Comments: Continue home medications Qualifiers: Hypertension type: essential hypertension Qualified Code(s): I10 - Essential (primary) hypertension (3) Anemia Priority: Secondary Status: Chronic Qualifiers: Anemia type: other cause Other causes of anemia: other cause, not classified Qualified Code(s): D64.89 - Other specified anemias (4) CKD (chronic kidney disease) stage 4, GFR 15-29 ml/min Priority: Secondary Status: Chronic (5) Diabetes mellitus Priority: Secondary Status: Chronic Qualifiers: Diabetes mellitus type: type 2 Diabetes mellitus complication status: with unspecified complications Diabetes mellitus long-term insulin use: with long-term use Qualified Code(s): E11.8 - Type 2 diabetes mellitus with unspecified complications; Z79.4 - intermediate frame tender (current) use of insulin (6) Dysphagia Priority: Secondary Status: Acute Qualifiers: Qualified Code(s): R13.10 - Dysphagia, unspecified (7) DVT prophylaxis Priority: Secondary Status: Acute Date of admission: 05/29/17 01:24 Primary care physician: Lyle Caro MD Consults: 05/29/17 05:06 Consult to Nephrology [CONS] Routine Consulting Provider: Kidney Savana/NEIL/GALEN/CLEMENT Reason for Consult: ESRD on HD Call Completed: Yes 05/30/17 08:15 Consult to Dialysis [CONS] ONCE 05/30/17 08:48 Consult to Invasive Line Access Team [CONS] Routine Reason for Consult: Powerglide insertion Line Type: EPIV 05/30/17 10:11 Consult to Physical Therapy [CONS] Routine Comment: Evaluate, develop and implement POC Reason for Consult: evaluate for placement 06/01/17 12:15 Consult to Dialysis [CONS] ONCE 06/04/17 08:30 Consult to Dialysis [CONS] ONCE 06/05/17 15:13 Consult to Speech Therapy [CONS] Routine Comment: Evaluate, develop and implement POC Reason for Consult: Patient has had several episodes of dysphagia and choking on food for the last several days; will likely need swallow eval Call Completed: No 06/06/17 08:15 Consult to Dialysis [CONS] ONCE Discharging clinician: Angel Garvey Anticipated date of discharge: 06/06/17 - Patient Status Overall status at discharge: patient is progressing back to baseline - Diet and Activity Activity: increase activity as tolerated Diet: advance to your usual diet Hospital course: Ms. Freeman is a 86 year old female who presented on 05/29/17 with a chief complaint of shortness of breath for 3 days. On presentation, she was lethargic and weak. She had a runny nose and a nonproductive cough. Chest x- ray was ordered on 05/29/17. The chest x-ray showed worsening pulmonary edema and developing right upper lobe infiltrate, which was concerning for pneumonia. She also had a large left-sided pleural effusion with consolidation in the left lung base. On presentation, she had elevated respirations at 22/m, and elevated white count. She was initially started on vancomycin and Zosyn. She was placed on 2 L of oxygen. A repeat chest x-ray was performed on 05/31/17. This chest x-ray demonstrated improving right lung airspace opacity. Unchanged left basilar opacity with bilateral effusions, left greater than right. Vancomycin was discontinued, and Levaquin was started on 05/31/17. On 06/02/17 , patient was switched to Levaquin as monotherapy. Patient's initial white count on admission was 16.7. Her white count was steadily decreasing until 06/01/17, during which her white count went from 10.1 with previous day to 12.3. While in the hospital, patient developed several episodes of dysphasia and had an episode of choking on food. Speech therapy was consulted for a swallow evaluation. Due to patient's swallowing difficulties, there was a concern for the possibility of aspiration pneumonia. Patient was therefore placed on clindamycin 600 mg by mouth 3 times a day. Patient was seen and examined at bedside on the morning of discharge. She was receiving dialysis at the time. She has a known history of chronic kidney disease and is a Sunday, Sunday, Sunday dialysis patient. She has been compliant with her dialysis during her stay. Her swallow evaluation study was unremarkable. On date of discharge, patient states that she feels much better than she did on admission. She no longer has shortness of breath. She denies having any fever or chills. She denies having any pain in her throat or difficulty swallowing on the day of discharge. Patient's O2 sats ration on the day of discharge is 94. Patient reported that she wants to go home, and would not like to go to a facility. She completed a full course of antibiotics. Clindamycin will be discontinued, and patient will not be discharged home on antibiotics. - Time Spent with Patient Total time spent providing and/or coordinating discharge services: Greater than 30 minutes (40 min) - Constitutional Vitals: Temp Pulse Resp BP Pulse Ox 98.5 F 51 16 153/62 94 06/06/17 07:51 06/06/17 07:51 06/06/17 07:51 06/06/17 07:51 06/06/17 07:51 General appearance: Present: A&O X 3, no acute distress, answers questions appropriately - Respiratory Respiratory exam: Present: CTAB. Absent: accessory muscle use, rales, rhonchi, wheezes - Cardiovascular Cardiovascular exam: Present: RRR, +S1, +S2. Absent: diastolic murmur, gallop, rubs, systolic murmur - Psychiatric Psychiatric exam: Present: normal affect, normal mood - Skin Skin exam: Present: dry, intact
[2017-06-06 17:17] VITALS: BP 173/51
== END 2017-06-06 17:15 | disposition home or self-care (01) | DRG 871 ==
LOC: ICNU → SUATTDRO 05-29 01:24 → 2ANU 05-29 18:30
PROVIDERS: ADMIT Internal Medicine; ATTEND Internal Medicine

== ENCOUNTER 2018-03-08 08:37 | Inpatient (IN) ==
--- NOTE | 2018-03-08 08:59 | Emergency Department Note ---
Disposition Clinical Impression: Fluid overload Qualifiers: Hypervolemia type: unspecified Qualified Code(s): E87.70 - Fluid overload, unspecified Pulmonary edema Qualifiers: Chronicity: acute Qualified Code(s): J81.0 - Acute pulmonary edema Disposition: Admitted As Inpatient Condition: Good Time of Disposition: 10:29 General Adult HPI - General Chief complaint: ED Shortness of Breath/Dyspnea Stated complaint: SOB Time Seen by Provider: 03/08/18 08:39 Source: patient, EMS Limitations: no limitations - History of Present Illness HPI Narrative: This is an 87-year-old female who reports significant shortness of breath starting about 2 hours prior to arrival, shortly after she awakened. She is on dialysis. Pain Scale: 0 - Related Data Home Medications Medication Instructions Recorded Confirmed Albuterol Sulfate [Ventolin Hfa] 2 puff IH Q6H PRN 03/08/18 03/08/18 Amlodipine Besylate 10 mg PO DAILY 03/08/18 03/08/18 Aspirin [Lo-Dose Aspirin EC] 81 mg PO DAILY 03/08/18 03/08/18 Cholecalciferol (D-3) [Vitamin D] 1,000 unit PO DAILY 03/08/18 03/08/18 Docusate [Colace] 200 mg PO DAILY PRN 03/08/18 03/08/18 Folic Acid/Vit Bcomp,C [Dialyvite 1 tab PO DAILY 03/08/18 03/08/18 Tablet] Glimepiride [Amaryl] 4 mg PO DAILY 03/08/18 03/08/18 Insulin DETEMIR [Levemir Flextouch] 12 unit SQ QAM 03/08/18 03/08/18 Isosorbide MONOnitrate (24 HR) 30 mg PO DAILY 03/08/18 03/08/18 [Imdur] Labetalol [Trandate] 100 mg PO QPM 03/08/18 03/08/18 Labetalol [Trandate] 200 mg PO QAM 03/08/18 03/08/18 Lisinopril [Zestril] 20 mg PO DAILY 03/08/18 03/08/18 Loratadine [Claritin] 10 mg PO DAILY 03/08/18 03/08/18 Lovastatin [Mevacor] 20 mg PO HS 03/08/18 03/08/18 Omeprazole [PriLOSEC] 20 mg PO DAILY 03/08/18 03/08/18 Tramadol HCl [Ultram] 50 mg PO DAILY PRN 03/08/18 03/08/18 Previous Rx's Medication Instructions Recorded Scopolamine Patch [Transderm-Scop] 1 each TD Q72H #1 patch.td72 02/19/18 Allergies Allergy/AdvReac Type Severity Reaction Status Date / Time Cefaclor [From Ceclor] Allergy Unknown Rash Verified 03/08/18 10:06 cephalexin Allergy Unknown Rash Verified 03/08/18 10:06 orphenadrine [From Norflex] Allergy Unknown Rash Verified 03/08/18 10:06 rofecoxib [From Vioxx] Allergy Unknown Rash Verified 03/08/18 10:06 sulfamethoxazole Allergy Unknown Rash Verified 03/08/18 10:06 [From Bactrim] trimethoprim [From Bactrim] Allergy Unknown Rash Verified 03/08/18 10:06 valdecoxib [From Bextra] Allergy Unknown Rash Verified 03/08/18 10:06 atorvastatin [From Lipitor] AdvReac Muscle Pain Verified 03/08/18 10:06 All systems ED: reviewed and negative except as stated. Respiratory: Reports: dyspnea Past Medical History - Past Medical History Medical history: Reports: arthritis, diabetes, dialysis, GERD, hyperlipidemia, hypertension, myocardial infarction, renal disease Surgical history: Reports: appendectomy, cataract, cholecystectomy, ROHAN/BSO, other Psychiatric history: Reports: anxiety, depression - Social History Smoking Status: Never smoker Smokeless Tobacco Status: No Alcohol use: Reports: none Drug use: Reports: none Physical Exam - General Limitations: no limitations General appearance: alert, in no apparent distress - Head Head exam: atraumatic, normocephalic, normal inspection - Eye Eye exam: Present: normal appearance, PERRL, EOMI - Chest Chest inspection: Present: normal inspection, symmetric chest wall rise. Absent : tenderness, rash - Respiratory Respiratory exam: Present: respiratory distress, other (There are crackles throughout, and long ultrasound shows B-lines in all lung [place]). Absent: wheezes - Cardiovascular Cardiovascular exam: Present: regular rate, normal rhythm, normal heart sounds - Abdominal Exam Abdominal exam: Present: soft, Non-Tender. Absent: tenderness, distention, guarding, rebound, rigidity - Extremities Exam Extremities exam: Present: normal inspection, full ROM. Absent: tenderness, pedal edema - Neurological Exam Neurological exam: Present: alert, oriented X3 - Psychiatric Psychiatric exam: Present: normal affect, normal mood - Skin Skin exam: Present: warm, dry, intact, normal color Course Course Narrative: This is an 87-year-old female with fluid overload, clearly needing dialysis. Vital Signs Temperature 98.9 F 03/08/18 08:41 Pulse Rate 88 03/08/18 08:41 Respiratory Rate 24 03/08/18 08:41 Blood Pressure 170/62 03/08/18 08:41 O2 Sat by Pulse Oximetry 100 03/08/18 08:41 Temperature 98.9 F 03/08/18 08:41 Pulse Rate 79 03/08/18 09:51 Respiratory Rate 16 03/08/18 09:51 Blood Pressure 152/51 03/08/18 09:51 O2 Sat by Pulse Oximetry 100 03/08/18 09:51 Oxygen Delivery Oxygen Delivery Nasal Cannula Medical Decision Making - MDM Narrative Medical decision making narrative: This is an 87-year-old female with fluid overload on dialysis. I discussed her case with the on-call instrument mechanics supervisor, Dr. Pichardo, and with the on-call hospitalist. For temporizing measures he was started on nitroglycerin infusion and given enalaprilat. Definitive treatment of course is dialysis. She was admitted to the hospital. - Lab Data Lab results narrative: CBC showed leukocytosis at 16.7 with anemia of 10.2 and 30.8 BMP showed slight hypokalemia at 3.4 with BUN elevated at 42 and creatinine at 3.1 Lactate was normal at 0.7 Troponin was slightly elevated 0.04 Result diagrams: 03/08/18 09:30 03/08/18 09:30 Lab Results 03/08/18 03/08/18 03/08/18 Range/Units 09:30 09:30 09:30 WBC 16.7 H (4.3-11.1) K/mcL RBC 3.44 L (3.82-4.97) M/mcL Hgb 10.2 L (11.5-15.4) g/dL Hct 30.8 L (35.3-44.9) % MCV 89.5 (83.0-100.0) fL MCH 29.7 (28.0-33.3) pg MCHC 33.1 (31.6-35.5) g/dL RDW 13.2 (11.5-14.5) % Plt Count 280 (140-400) K/mcL MPV 10.8 (9.4-12.4) fL Immature Gran % 0.4 (0-4) % Seg Neutrophils % 87.6 % Lymphocytes % 4.4 % Monocytes % 4.5 % Eosinophils % 2.3 % Basophils % 0.8 % Neutrophils # 14.7 H (1.6-8.9) K/mcL Lymphocytes # 0.7 (0.6-4.6) K/mcL Monocytes # 0.8 (0.0-1.3) K/mcL Eosinophils # 0.4 (0.0-0.6) K/mcL Basophils # 0.1 (0.0-0.2) K/mcL Sodium 136 (136-145) mEq/L Potassium 3.4 L (3.5-5.1) mEq/L Chloride 96 L (98-107) mEq/L Carbon Dioxide 27 (23-29) mEq/L BUN 42 H (8-23) mg/dL Creatinine 3.10 H (0.60-1.20) mg/dL Est GFR ( Amer) 17 L (> 60) Est GFR (Non-Af Amer) 14 L (> 60) BUN/Creatinine Ratio 14 (6-26) Glucose 207 H (70-105) mg/dL Calculated Osmolality 299 (280-300) Lactic Acid 0.7 (0.5-2.2) mmol/L Calcium 9.6 (8.6-10.3) mg/dL Troponin I 0.04 H* (< 0.04) ng/mL - EKG Data EKG #1 EKG attestation: Yes I reviewed and interpreted this EKG. EKG results narrative: EKG shows sinus rhythm, 84 bpm, normal intervals, normal axis, ST depression in V5 and V6 Critical Care Time Critical Care Time: Yes Total Critical Care Time: 20 Attestation: 20 minutes was spent in patient evaluation, reviewing labs, and discussion of her situation with other staff, independent of separately billable procedures.
[2018-03-08] MEDS ORDERED: Nitroglycerin 25 MG/250 ML INFUS..BTL IVC SCH (09:00)
[2018-03-08] MEDS ORDERED: 0.9 % Sodium Chloride 250 ML IVC PRN (09:45)
[2018-03-08 10:00] LABS: Basophils # 0.1 K/mcL (0.0-0.2); Basophils % 0.8 %; Eosinophils # 0.4 K/mcL (0.0-0.6); Eosinophils % 2.3 %; Hematocrit 30.8 % (35.3-44.9); Hemoglobin 10.2 g/dL (11.5-15.4); Immature Granulocytes % 0.4 % (0-4); Lymphocytes # 0.7 K/mcL (0.6-4.6); Lymphocytes % 4.4 %; Mean Corpuscular HGB Conc 33.1 g/dL (31.6-35.5); Mean Corpuscular Hemoglobin 29.7 pg (28.0-33.3); Mean Corpuscular Volume 89.5 fL (83.0-100.0); Mean Platelet Volume 10.8 fL (9.4-12.4); Monocytes # 0.8 K/mcL (0.0-1.3); Monocytes % 4.5 %; Neutrophils # 14.7 K/mcL (1.6-8.9); Platelet Count 280 K/mcL (140-400); Red Blood Count 3.44 M/mcL (3.82-4.97); Red Cell Distribution Width 13.2 % (11.5-14.5); Segmented Neutrophils % 87.6 %
[2018-03-08 10:17] LABS: Calcium 9.6 mg/dL (8.6-10.3); Potassium 3.4 mEq/L (3.5-5.1)
[2018-03-08 10:25] LABS: Troponin I 0.04 ng/mL (< 0.04)
[2018-03-08] MEDS ORDERED: Furosemide 40 MG/4 ML VIAL IVP SCH ×2 (13:00)
--- NOTE | 2018-03-08 13:01 | Nephrology Consult Note ---
Date of Encounter: 03/08/18 Time of Encounter: 12:51 Assessment and Plan (1) ESRD (end stage renal disease) on dialysis Current Visit: Yes Status: Acute Current regimen is MWF at [facility]. Last tx was Sunday without complication. HD ordered for today. Avoid nephrotoxins and renal dose all medications. Strict I/O. (2) Fluid overload Current Visit: Yes Status: Acute 40 IV lasix ordered x 4 doses. Qualifiers: Hypervolemia type: unspecified Qualified Code(s): E87.70 - Fluid overload, unspecified (3) Pulmonary edema Current Visit: Yes Status: Acute see above. Qualifiers: Chronicity: acute Qualified Code(s): J81.0 - Acute pulmonary edema History of Present Illness - Reason for Consult Consult date: 03/08/18 end stage renal disease - Chief Complaint shortness of breath - History of Present Illness Ms. Freeman is an 87 year old female with ESRD. Current regimen is MWF at [facility]. PMH: arthritis, diabetes, GERD, hyperlipidemia, hypertension, myocardial infarction. Pt does not use home oxygen, is on 5 liters now. She does occasionally use it during HD. Denies chest pain, admits to feeling short of breath. Denies fever, chills, nausea, vomiting,diarrhea.Last HD tx was Sunday without complication. HD has already been ordered for today, she is currently still in the ED. Her symptoms started early this morning, when she woke up. Her symptoms did not radiate and the shortness of breath improved slightly when sitting up. Her dry weight is 56 kg and she is currently 61 kg. She typically runs [address] Pichardo would like to run her a little longer on HD today to see if her shortness of breath improves. I have also ordered 40 mg IV lasix for a total of 4 doses since she still makes urine. No recent changes in PMH or medications. Has not been in the hospital recently. Past Med Surg Social Fam HX - Past Medical History Medical history: arthritis, diabetes, dialysis, GERD, hyperlipidemia, hypertension, myocardial infarction, renal disease Additional medical history: CKD,PVD,back pain, venous insuff, OA, gout, diverticulosis, Lumbar DDD, Psychiatric history: anxiety, depression - Past Surgical History Surgical History: appendectomy, cataract, cholecystectomy, ROHAN/BSO, other Additional surgical history: colonoscopy - Social History Smoking Status: Never smoker Smokeless Tobacco Status: No Alcohol use: none Drug use: none - Family History Mother Living Status: Hx Family Cardiac Disorders: Yes Hx Family Endocrine Disorder: Yes Medications and Allergies RX: Scopolamine Patch [Transderm-Scop] 1 each TD Q72H #1 patch.td72 02/19/18 [Rx ] Albuterol Sulfate [Ventolin Hfa] 2 puff IH Q6H PRN 03/08/18 [History] Aspirin [Lo-Dose Aspirin EC] 81 mg PO DAILY 03/08/18 [History] Cholecalciferol (D-3) [Vitamin D] 1,000 unit PO DAILY 03/08/18 [History] Folic Acid/Vit Bcomp,C [Dialyvite Tablet] 1 tab PO DAILY 03/08/18 [History] Isosorbide MONOnitrate (24 HR) [Imdur] 30 mg PO DAILY 03/08/18 [History] RX: Amlodipine Besylate 10 mg PO DAILY 03/08/18 [History] RX: Docusate [Colace] 200 mg PO DAILY PRN 03/08/18 [History] RX: Glimepiride [Amaryl] 4 mg PO DAILY 03/08/18 [History] RX: Insulin DETEMIR [Levemir Flextouch] 12 unit SQ QAM 03/08/18 [History] RX: Labetalol [Trandate] 100 mg PO QPM 03/08/18 [History] RX: Labetalol [Trandate] 200 mg PO QAM 03/08/18 [History] RX: Lisinopril [Zestril] 20 mg PO DAILY 03/08/18 [History] RX: Loratadine [Claritin] 10 mg PO DAILY 03/08/18 [History] RX: Lovastatin [Mevacor] 20 mg PO HS 03/08/18 [History] RX: Omeprazole [PriLOSEC] 20 mg PO DAILY 03/08/18 [History] Tramadol HCl [Ultram] 50 mg PO DAILY PRN 03/08/18 [History] 3 Allergy/AdvReac Type Severity Reaction Status Date / Time Cefaclor [From Ceclor] Allergy Unknown Rash Verified 03/08/18 10:06 cephalexin Allergy Unknown Rash Verified 03/08/18 10:06 orphenadrine [From Norflex] Allergy Unknown Rash Verified 03/08/18 10:06 rofecoxib [From Vioxx] Allergy Unknown Rash Verified 03/08/18 10:06 sulfamethoxazole Allergy Unknown Rash Verified 03/08/18 10:06 [From Bactrim] trimethoprim [From Bactrim] Allergy Unknown Rash Verified 03/08/18 10:06 valdecoxib [From Bextra] Allergy Unknown Rash Verified 03/08/18 10:06 atorvastatin [From Lipitor] AdvReac Muscle Pain Verified 03/08/18 10:06 Review of Systems Constitutional: no chills, no fatigue, no fever(s) Cardiovascular: dyspnea, no chest pain, no edema Respiratory: dyspnea Gastrointestinal: no change in bowel habits, no diarrhea, no nausea, no vomiting Exam - Vital Signs Vital signs: Initial Vital Signs Temp Pulse Resp BP Pulse Ox 98.9 F 88 24 170/62 100 03/08/18 08:41 03/08/18 08:41 03/08/18 08:41 03/08/18 08:41 03/08/18 08:41 Vital Signs - Last 8 Hours Temp Pulse Resp BP Pulse Ox 03/08/18 09:51 79 16 152/51 100 03/08/18 08:46 100 03/08/18 08:41 98.9 F 88 24 170/62 100 Intake and Output 03/07/18 03/08/18 03/08/18 23:59 07:59 15:59 Other: Weight 61.235 kg Patient Weight 03/08/18 23:59 Weight 61.235 kg - General Appearance General appearance: well-developed, well-nourished EENT: ATNC, hearing intact, vision intact Neck: supple Respiratory: clear Cardiology: no edema, normal S1, normal S2 - Dialysis Access Dialysis Vascular Access: Arteriovenous Fistula thrill: Yes bruit: Yes Gastrointestinal: normoactive bowel sounds, no tenderness, no guarding Integumentary: no rash, warm and dry Neurologic: alert and oriented x3 Psychiatric: mood/affect appropriate, cooperative Results - Lab Results 03/08/18 09:30 03/08/18 09:30 Most recent lab results Calcium 9.6 mg/dL (8.6-10.3) 03/08/18 09:30 Consult Discharge Plan - Plan Referrals: Lyle Caro MD [Primary Care Provider] -
[2018-03-08] MEDS ORDERED: 0.9 % Sodium Chloride 1,000 ML ONE (14:10)
[2018-03-08] MEDS ORDERED: Naloxone 0.4 MG/ML INJ IVP PRN (14:32)
[2018-03-08] MEDS ORDERED: traMADol 50 MG TABLET PO PRN (14:40)
[2018-03-08] MEDS: Isosorbide MONOnitrate (24 HR) 30 MG TAB.ER.24H PO SCH (14:45)
--- NOTE | 2018-03-08 15:21 | Internal Med Progress Note ---
Hospitalist Progress Note - Encounter Date of Encounter: 03/08/18 Time of Encounter: 15:19 - Exam Vitals: Temp Pulse Resp BP Pulse Ox 98.9 F 79 22 158/58 100 03/08/18 08:41 03/08/18 13:02 03/08/18 13:02 03/08/18 13:02 03/08/18 13:02 - Time Spent with Patient Total time spent is greater than 50% in coordination of care (as documented) at patient's floor/unit and/or counseling patient: Internal Medicine: Result - Labs CBC & Chem 7: 03/08/18 09:30 03/08/18 09:30 Consult Discharge Plan - Plan Referrals: Lyle Caro MD [Primary Care Provider] -
--- NOTE | 2018-03-08 15:28 | Internal Med History&Physical ---
Date of Encounter: 03/08/18 Time of Encounter: 15:21 Internal Medicine - H&P: HPI Chief complaint: shortness of breath Admitted From: Home Plans for Post Hospital Care: Home History of present illness: Ms. Freeman is a 87 year old female who presents to [facility] emergency department with chief complaint of shortness of breath. Patient has end-stage renal disease and receives dialysis Sunday and has not missed dialysis. Patient states that she woke up short of breath and presented to the emergency department. Patient states for the last few days she has had a cough with sputum production. Patient admits to shortness of breath with exertion and possible orthopnea. Patient denies any chest pain, fevers, headache, blurry vision, double vision, abdominal pain, nausea, vomiting, diarrhea, recent travel or sick contacts. Patient was found to have leukocytosis in ED and slightly elevated troponin. Patient was evaluated emergency department and found to have pulmonary edema and evidence of volume overload. Nephrology was contacted who ordered an extended dialysis. Patient was also given nitroglycerin and IV GUILLERMO inhibitor 6 and lasix as produces some urine. Patient to be admitted for volume overload with pulmonary edema and diastolic congestive heart failure exacerbation and tracheo-bronchitis. Patient with past history of osteoarthritis, diabetes, end-stage renal disease, reflux, hyperlipidemia, hypertension, history of WI, gout and reported history of diastolic congestive heart failure. Past Med Surg Social Fam HX - Past Medical History Medical history: arthritis, diabetes, dialysis, GERD, hyperlipidemia, hypertension, myocardial infarction, renal disease Additional medical history: CKD,PVD,back pain, venous insuff, OA, gout, diverticulosis, Lumbar DDD, Psychiatric history: anxiety, depression - Past Surgical History Surgical History: appendectomy, cataract, cholecystectomy, ROHAN/BSO, other Additional surgical history: colonoscopy - Social History Smoking Status: Never smoker Smokeless Tobacco Status: No Alcohol use: none Drug use: none - Family History Mother Living Status: Hx Family Cardiac Disorders: Yes Hx Family Endocrine Disorder: Yes Internal Medicine - H&P: Meds Scopolamine Patch [Transderm-Scop] 1 each TD Q72H #1 patch.td72 02/19/18 [Rx] Albuterol Sulfate [Ventolin Hfa] 2 puff IH Q6H PRN 03/08/18 [History] Amlodipine Besylate 10 mg PO DAILY 03/08/18 [History] Aspirin [Lo-Dose Aspirin EC] 81 mg PO DAILY 03/08/18 [History] Cholecalciferol (D-3) [Vitamin D] 1,000 unit PO DAILY 03/08/18 [History] Docusate [Colace] 200 mg PO DAILY PRN 03/08/18 [History] Folic Acid/Vit B Complex and C [Dialyvite Tablet] 1 tab PO DAILY 03/08/18 [ History] Glimepiride [Amaryl] 4 mg PO DAILY 03/08/18 [History] Insulin DETEMIR [Levemir Flextouch] 12 unit SQ QAM 03/08/18 [History] Isosorbide MONOnitrate (24 HR) [Imdur] 30 mg PO DAILY 03/08/18 [History] Labetalol [Trandate] 100 mg PO QPM 03/08/18 [History] Labetalol [Trandate] 200 mg PO QAM 03/08/18 [History] Lisinopril [Zestril] 20 mg PO DAILY 03/08/18 [History] Loratadine [Claritin] 10 mg PO DAILY 03/08/18 [History] Lovastatin [Mevacor] 20 mg PO HS 03/08/18 [History] Omeprazole [PriLOSEC] 20 mg PO DAILY 03/08/18 [History] Tramadol HCl [Ultram] 50 mg PO DAILY PRN 03/08/18 [History] 3 Allergy/AdvReac Type Severity Reaction Status Date / Time Cefaclor [From Ceclor] Allergy Unknown Rash Verified 03/08/18 10:06 cephalexin Allergy Unknown Rash Verified 03/08/18 10:06 orphenadrine [From Norflex] Allergy Unknown Rash Verified 03/08/18 10:06 rofecoxib [From Vioxx] Allergy Unknown Rash Verified 03/08/18 10:06 sulfamethoxazole Allergy Unknown Rash Verified 03/08/18 10:06 [From Bactrim] trimethoprim [From Bactrim] Allergy Unknown Rash Verified 03/08/18 10:06 valdecoxib [From Bextra] Allergy Unknown Rash Verified 03/08/18 10:06 atorvastatin [From Lipitor] AdvReac Muscle Pain Verified 03/08/18 10:06 All Systems PM: A 10-system review of systems was performed and is negative for pertinent findings except as documented above in the HPI. Review of systems: 10 point review of systems obtained and is otherwise negative other than described in history of present illness - Constitutional Vitals: Temp Pulse Resp BP Pulse Ox 98.9 F 79 22 158/58 100 03/08/18 08:41 03/08/18 13:02 03/08/18 13:02 03/08/18 13:02 03/08/18 13:02 Exam: Constitutional: No acute distress, Alert, lying in bed recieving hemodyalysis Psych: AAO x 3 HEENT: NCAT, EOMI Neck: supple, slight JVD Cardio: regular rate and rhythm, +s1s2, no murmurs, slight JVD Resp: decreased breath sounds in bases with rales in bases, tachypnenic but much improved per pt Abd: soft, non tender/non distended, positive bowel sounds, no gaurding/reboud/ ridgitity Extremities: no clubbing/cyanosis/edema appreciated; Left upper extremity access being used currently Neuro: no focal deficits appreciated Lymph: no cervical/supraclavicular adenopahty apprecitated Internal Med - H&P Results - Labs CBC & Chem 7: 03/08/18 09:30 03/08/18 09:30 - Assessment and plan (1) Acute on chronic diastolic congestive heart failure Current Visit: Yes Status: Acute Assessment and plan: Pt presented with respiratory distress with history of IZAGUIRRE and questionable orthopnea -imaging consistent with pulmonary edema -has history of diastolic HF with preserved EF -treated with vasotech and IV lasix as she still makes some urine -HD today for longer session for volume removal -nitro gtt ordered but not started; no chest pain; will dc -order 2d echocardiogram; last echo 05/2017 with ef 50-55% with mod left diastolic dysfxn -continue lasix 40 iv bid -nephro following and will arrange HD -on asa, bb, guillermo-i (2) Tracheobronchitis Current Visit: Yes Status: Acute Assessment and plan: Pt with leukocytosis with recent hisotry of cough and sputum production -no signs of pneumonia on chest xray -afebrile -start azithromycin -sputum culture (3) ESRD (end stage renal disease) on dialysis Current Visit: Yes Status: Acute Assessment and plan: -ESRD on HD MWF -evidence of volume overload and pulm edema -HD currently with volume removal -nephro following (4) Fluid overload Current Visit: Yes Status: Acute Assessment and plan: -see above -HD today Qualifiers: Hypervolemia type: unspecified Qualified Code(s): E87.70 - Fluid overload, unspecified (5) Pulmonary edema Current Visit: Yes Status: Acute Assessment and plan: -see above -HD today -treatment for heart failure and volume overload Qualifiers: Chronicity: acute Qualified Code(s): J81.0 - Acute pulmonary edema (6) Leukocytosis Current Visit: Yes Status: Acute Assessment and plan: -Leukocytosis of 16.7 on admission -history of cough with sputum production for last few days -likely tracheobronchitis; zithromax started -sputum cx -afebrile, no tachycardia Qualifiers: Leukocytosis type: unspecified Qualified Code(s): D72.829 - Elevated white blood cell count, unspecified (7) Elevated troponin Current Visit: No Status: Resolved Assessment and plan: -troponin of 0.04 -no chest pain -likely 2/2 respiratory distress with possible hypoxia -ecg not available for review yet but er reports sinus rhythm, 84 bpm, normal intervals, normal axis, ST depression in V5 and V6 -will check another troponin (8) DVT prophylaxis Current Visit: Yes Status: Acute Assessment and plan: sub q heparin - Time Spent With Patient Total time spent is greater than 50% in coordination of care (as documented) at patient's floor/unit and/or counseling patient: Greater than 35 minutes
[2018-03-08] MEDS: *HR* Heparin 5,000 UNIT/ML VIAL SQ SCH (17:55)
[2018-03-08] MEDS: Furosemide 40 MG/4 ML VIAL IVP SCH (17:55)
[2018-03-08] MEDS: Azithromycin 500 MG in D5% in Water 250 ML IVPB SCH (17:59)
[2018-03-08 19:39] LABS: Hepatitis B Surface Antigen Reactive (Nonreactive)
[2018-03-08] MEDS ORDERED: D5% in Water 1,000 ML IVC PRN (21:19)
[2018-03-08] MEDS ORDERED: Dextrose Gel 15 GM/37.5 ML TUBE PO PRN ×2 (21:19)
[2018-03-08] MEDS ORDERED: *HR* Dextrose 50 % in Water (Syg) 50 ML SYRINGE IVP PRN (21:19)
[2018-03-08] MEDS: Insulin LISPRO 300 UNITS/3 ML VIAL SQ SCH (22:43)
[2018-03-09] MEDS: *HR* Heparin 5,000 UNIT/ML VIAL SQ SCH ×3 (01:04→16:59)
[2018-03-09 01:22] LABS: Basophils # 0.1 K/mcL (0.0-0.2); Basophils % 0.6 %; Eosinophils # 0.5 K/mcL (0.0-0.6); Eosinophils % 3.8 %; Hematocrit 35.5 % (35.3-44.9); Hemoglobin 11.7 g/dL (11.5-15.4); Immature Granulocytes % 0.3 % (0-4); Lymphocytes # 1.4 K/mcL (0.6-4.6); Lymphocytes % 12.3 %; Mean Corpuscular Hemoglobin 29.7 pg (28.0-33.3); Mean Corpuscular Volume 90.1 fL (83.0-100.0); Mean Platelet Volume 10.7 fL (9.4-12.4); Monocytes # 0.8 K/mcL (0.0-1.3); Monocytes % 7.2 %; Neutrophils # 8.9 K/mcL (1.6-8.9); Platelet Count 301 K/mcL (140-400); Red Blood Count 3.94 M/mcL (3.82-4.97); Red Cell Distribution Width 13.1 % (11.5-14.5); Segmented Neutrophils % 75.8 %
[2018-03-09 01:36] LABS: Calcium 9.7 mg/dL (8.6-10.3); Magnesium 1.9 mg/dL (1.6-2.6); Phosphorous 2.5 mg/dL (2.7-4.5); Potassium 3.4 mEq/L (3.5-5.1)
--- NOTE | 2018-03-09 08:06 | Internal Med Progress Note ---
Hospitalist Progress Note - Encounter Date of Encounter: 03/09/18 Time of Encounter: 08:03 - Subjective Interval History: Patient seen and examined at bedside. Patient no acute overnight events. Patient sleeping upon my arrival. Laying nearly completely flat; upon awakening she states she feels much better than yesterday. She states she is not currently short of breath denies chest pain palpitations, nausea, vomiting, diarrhea. Blood pressure improved with home medications. Patient's troponin plateaued and not having chest pain, we will cancel a.m. EKG - Exam Vitals: Temp Pulse Resp BP Pulse Ox 97.6 F 70 16 149/64 100 03/09/18 06:41 03/09/18 06:41 03/09/18 06:41 03/09/18 06:41 03/09/18 06:41 Exam: Constitutional: No acute distress, Alert, lying nearly flat in bed Psych: AAO x 3 HEENT: NCAT, EOMI Cardio: regular rate and rhythm, +s1s2, no murmurs, JVD not appreciated Resp: faint rales in bases improved from prior, tachypnea has resolved Abd: soft, non tender/non distended, positive bowel sounds Extremities: no clubbing/cyanosis/edema appreciated; Left upper extremity access Neuro: no focal deficits appreciated - Assessment and Plan (1) Acute on chronic diastolic congestive heart failure Current Visit: Yes Status: Acute Assessment and Plan: Pt presented with respiratory distress with history of IZAGUIRRE and questionable orthopnea -much improved; nearly compensated -imaging consistent with pulmonary edema -has history of diastolic HF with preserved EF -treated with vasotech and IV lasix as she still makes some urine -HD yesterday with 2.6L removed -echo pending last echo 05/2017 with ef 50-55% with mod left diastolic dysfxn -continue lasix 40 iv bid for 4 doses -nephro following and will arrange HD as needed -on asa, bb, juan alberto-i (2) Tracheobronchitis Current Visit: Yes Status: Acute Assessment and Plan: Pt with leukocytosis with recent hisotry of cough and sputum production -no signs of pneumonia on chest xray -afebrile -continue azithromycin, change to oral at dc -leuckocytosis imrproving -sputum culture (3) ESRD (end stage renal disease) on dialysis Current Visit: Yes Status: Acute Assessment and Plan: -ESRD on HD MWF -evidence of volume overload and pulm edema at admission improved now -HD yesterday 2.6L removed -HD per nephro -nephro following (4) Fluid overload Current Visit: Yes Status: Acute Assessment and Plan: -see above -HD per nephro -improved (5) Pulmonary edema Current Visit: Yes Status: Acute Assessment and Plan: -see above -HD per nephro -treatment for heart failure and volume overload -improved (6) Leukocytosis Current Visit: Yes Status: Acute Assessment and Plan: -Leukocytosis of 16.7 on admission down to 11.7 today -history of cough with sputum production for last few days -likely tracheobronchitis; zithromax started and will continue -sputum cx -afebrile, no tachycardia (7) Elevated troponin Current Visit: Yes Status: Resolved Assessment and Plan: -troponin of 0.04 then increased and plataued at 0.07 -no chest pain -likely 2/2 respiratory distress with possible hypoxia -ecg not available for review yet but er reports sinus rhythm, 84 bpm, normal intervals, normal axis, ST depression in V5 and V6 -echo pending -stop trending troponins (8) DVT prophylaxis Current Visit: Yes Status: Acute Assessment and Plan: sub q heparin DVT Prophylaxis: hep sq - Time Spent with Patient Total time spent is greater than 50% in coordination of care (as documented) at patient's floor/unit and/or counseling patient: 25 - 35 minutes Plan of Care Discussed with: patient Internal Medicine: Result - Labs CBC & Chem 7: 03/09/18 00:56 03/09/18 00:56 Labs: Short CBC 03/09/18 Range/Units 00:56 WBC 11.7 H (4.3-11.1) K/mcL Hgb 11.7 D (11.5-15.4) g/dL Hct 35.5 (35.3-44.9) % Plt Count 301 (140-400) K/mcL Neutrophils # 8.9 (1.6-8.9) K/mcL BMP 03/09/18 00:56 Sodium 133 L Potassium 3.4 L Chloride 100 Carbon Dioxide 29 BUN 19 Creatinine 1.95 H Glucose 57 L Calcium 9.7 Cardiac Enzymes 03/08/18 03/09/18 Range/Units 17:57 00:56 Troponin I 0.07 H* 0.07 H* (< 0.04) ng/mL - VTE Documentation of Mechanical Device: Intermittent pneumatic compression device Consult Discharge Plan - Plan Referrals: Lyle Caro MD [Primary Care Provider] - (4) Fluid overload Qualifiers: Hypervolemia type: unspecified Qualified Code(s): E87.70 - Fluid overload, unspecified (5) Pulmonary edema Qualifiers: Chronicity: acute Qualified Code(s): J81.0 - Acute pulmonary edema (6) Leukocytosis Qualifiers: Leukocytosis type: unspecified Qualified Code(s): D72.829 - Elevated white blood cell count, unspecified
[2018-03-09] MEDS: Insulin LISPRO 300 UNITS/3 ML VIAL SQ SCH ×4 (08:44→22:05)
[2018-03-09] MEDS: Lisinopril 20 MG TABLET PO SCH (09:21)
[2018-03-09] MEDS: Furosemide 40 MG/4 ML VIAL IVP SCH ×2 (09:22→16:58)
[2018-03-09] MEDS: Aspirin Enteric Coated 81 MG Tablet PO SCH (09:22)
[2018-03-09] MEDS: Vitamin B Complex/Vit C/Vit E 1 EACH TABLET PO SCH (09:22)
[2018-03-09] MEDS: Insulin DETEMIR 100 UNIT/ML X5UNITS SQ SCH (09:22)
[2018-03-09] MEDS: Loratadine 10 MG TABLET PO SCH (09:22)
[2018-03-09] MEDS: amLODIPine 5 MG TABLET PO SCH (09:22)
[2018-03-09] MEDS: Isosorbide MONOnitrate (24 HR) 30 MG TAB.ER.24H PO SCH (09:22)
--- NOTE | 2018-03-09 09:44 | Nephrology Progress Note ---
Date of Encounter: 03/11/18 Time of Encounter: 10:25 - Assessment and Plan (1) ESRD (end stage renal disease) on dialysis Status: Chronic ESRD on HD MWF with urgent HD performed yesterday d/t symptomatic fluid overload. I have also added Lasix, and since she so readily cramps during dialysis, this has been causing her to stop her HD treatments early, which has led to frequent worsening of her volume status. I would recommend utilizing the loop diuretics today by IV and then switching to oral lasix after discharge so as to help better control her volume status, and ideally lower the change of recurrent pulmonary edema / fluid overload. (2) Fluid overload Status: Acute See above. Trending better. (3) Pulmonary edema Status: Acute See above. Trending better. Qualifiers: Chronicity: acute Qualified Code(s): J81.0 - Acute pulmonary edema (4) Hypoglycemia Status: Acute Noted with AM labs. ESRD pt's are always at a higher risk for hypoglycemia d/t diminished clearance. (5) Acute on chronic diastolic congestive heart failure Status: Acute Appreciate the Hospitalist team. See above re: diuretics . (6) Leukocytosis Status: Acute Unclear etiology. Could be reactive, or if she had received any steroids with her dyspnea. As per primary. Qualifiers: Leukocytosis type: unspecified Qualified Code(s): D72.829 - Elevated white blood cell count, unspecified Subjective Principal diagnosis: Shortness of breath Interval history: Pt was s/e. She did not affirm N/V/D and affirmed that her shortness of breath was improving. Objective - Vital Signs Vital signs: Vital Signs Temp Pulse Resp BP Pulse Ox 03/09/18 06:41 97.6 F 70 16 149/64 100 03/09/18 03:37 98.1 F 64 18 146/53 99 03/09/18 00:38 98.6 F 66 18 151/55 97 03/08/18 19:41 98 F 62 17 135/45 97 03/08/18 17:26 98.4 F 67 18 162/53 03/08/18 16:55 98.0 F 20 165/54 03/08/18 16:40 140/49 03/08/18 16:25 145/57 03/08/18 16:10 144/57 03/08/18 15:55 151/58 03/08/18 15:40 135/59 03/08/18 15:25 140/52 03/08/18 15:10 152/55 03/08/18 14:55 151/59 03/08/18 14:40 130/61 Intake and Output 03/08/18 03/09/18 03/09/18 23:59 07:59 15:59 Intake Total 240 / 240 Output Total 2650 / 2650 100 / 100 Balance -2650 / -2650 -100 / -100 240 / 240 Intake: Oral 240 / 240 Output: Urine 100 / 100 Total Dialysis (HD) Output 2650 / 2650 Other: Meal Breakfast Percent of Meal Consumed 50% # Voids 1 Blood Glucose* 347 135 Hemodialysis Net Fluid Removed 0 (mL) - General Appearance General appearance: Present: well-developed, appears started age, obese, frail EENT: Present: ATNC, PERRL, mucous membranes moist Neck: Present: supple Respiratory: Present: clear Cardiology: Present: no edema, regular rate, normal S1, normal S2 Dialysis Vascular Access: Arteriovenous Fistula thrill: Yes bruit: Yes Gastrointestinal: Present: normoactive bowel sounds, no tenderness, no guarding Integumentary: Present: warm and dry Neurologic: Present: no focal deficit, no asterixis, alert and oriented x3 Musculoskeletal: Present: no deformities, no erythema, no cyanosis Psychiatric: Present: mood/affect appropriate, cooperative - Lab 03/10/18 03:31 03/10/18 03:31 Most recent lab results Calcium 9.7 mg/dL (8.6-10.3) 03/09/18 00:56 Phosphorus 2.5 mg/dL (2.7-4.5) L 03/09/18 00:56 Magnesium 1.9 mg/dL (1.6-2.6) 03/09/18 00:56 - VTE Documentation of Mechanical Device: Intermittent pneumatic compression device Consult Discharge Plan - Plan Instructions: Furosemide (By mouth), Azithromycin (By mouth) Referrals: Lyle Caro MD [Primary Care Provider] - Prescriptions: Azithromycin [Zithromax] 500 mg PO DAILY 3 Days #3 tablet Furosemide [Lasix] 80 mg PO DAILY 30 Days #30 tablet
[2018-03-09] MEDS: Azithromycin 500 MG in D5% in Water 250 ML IVPB SCH (16:59)
[2018-03-09] MEDS ORDERED: Insulin LISPRO 300 UNITS/3 ML VIAL SQ SCH (21:00)
[2018-03-10] MEDS: *HR* Heparin 5,000 UNIT/ML VIAL SQ SCH ×2 (00:47→09:18)
[2018-03-10 03:51] LABS: Basophils # 0.1 K/mcL (0.0-0.2); Basophils % 0.9 %; Eosinophils # 0.5 K/mcL (0.0-0.6); Eosinophils % 6.2 %; Hematocrit 29.4 % (35.3-44.9); Immature Granulocytes % 0.4 % (0-4); Lymphocytes # 1.6 K/mcL (0.6-4.6); Lymphocytes % 19.6 %; Mean Corpuscular HGB Conc 32.7 g/dL (31.6-35.5); Mean Corpuscular Hemoglobin 29.2 pg (28.0-33.3); Mean Corpuscular Volume 89.4 fL (83.0-100.0); Mean Platelet Volume 10.8 fL (9.4-12.4); Monocytes # 0.8 K/mcL (0.0-1.3); Monocytes % 9.5 %; Neutrophils # 5.2 K/mcL (1.6-8.9); Platelet Count 247 K/mcL (140-400); Red Blood Count 3.29 M/mcL (3.82-4.97); Red Cell Distribution Width 13.2 % (11.5-14.5); Segmented Neutrophils % 63.4 %
[2018-03-10 03:53] LABS: Hemoglobin 9.6 g/dL (11.5-15.4)
[2018-03-10 04:09] LABS: Calcium 9.6 mg/dL (8.6-10.3)
[2018-03-10 06:52] VITALS: BP 133/49
[2018-03-10] MEDS: Insulin LISPRO 300 UNITS/3 ML VIAL SQ SCH (07:36)
--- NOTE | 2018-03-10 08:23 | Event Note ---
Date of Encounter: 03/10/18 Time of Encounter: 08:22 Nephrology Chart Review Biochemically stable. Will reassess tomorrow (Sunday) with tentative plans for continuation of HD every MWF.
--- NOTE | 2018-03-10 08:27 | Discharge Summary ---
Orders not resulted at time of discharge: Pending orders 03/08/18 15:56 Sputum Culture [Culture,Sputum with Gram Stain] [RM] Routine 03/09/18 06:00 ECG 12 lead ECG [ECG] AM 0600 03/11/18 04:00 BMP [Basic Metabolic Panel] AM 0400 Date of Encounter: 03/10/18 Time of Encounter: 08:24 - Discharge Diagnosis (1) Acute on chronic diastolic congestive heart failure Priority: Primary Status: Acute (2) Tracheobronchitis Priority: Secondary Status: Acute (3) ESRD (end stage renal disease) on dialysis Priority: Secondary Status: Chronic (4) Fluid overload Priority: Secondary Status: Acute Qualifiers: Hypervolemia type: unspecified Qualified Code(s): E87.70 - Fluid overload, unspecified (5) Pulmonary edema Priority: Secondary Status: Acute Qualifiers: Chronicity: acute Qualified Code(s): J81.0 - Acute pulmonary edema (6) Leukocytosis Priority: Secondary Status: Acute Qualifiers: Leukocytosis type: unspecified Qualified Code(s): D72.829 - Elevated white blood cell count, unspecified (7) Elevated troponin Priority: Secondary Status: Resolved (8) DVT prophylaxis Priority: Secondary Status: Acute Hospital course: Ms. Freeman is a 87 year old female who presented to the emergency department shortness of breath. The patient was found to be volume overloaded and was admitted to the hospital for heart failure exacerbation. This was likely precipitated by the fact that the patient has been unable to tolerate for hemodialysis sections compared to cramps. IV Lasix was started this admission and patient will be discharged on by mouth Lasix to hopefully decrease her volume status to prevent readmissions. Patient with leukocytosis with nonproductive cough and was started on azithromycin for tracheobronchitis; leukocytosis resolved the patient will be discharged on azithromycin for 3 additional days. Patient's respiratory status improved throughout her stay the patient's heart failure was compensated prior to discharge. The patient initially required oxygen that was removed day prior to discharge. Patient is stable and agreeable to discharge on Sunday03/10/2018. Discharge discussed with: patient, nurse - Time Spent with Patient Total time spent providing and/or coordinating discharge services: Greater than 30 minutes - Discharge Medications Prescriptions: Furosemide [Lasix] 80 mg PO DAILY 30 Days #30 tablet Home Medications: Scopolamine Patch [Transderm-Scop] 1 each TD Q72H #1 patch.td72 02/19/18 [Rx] Albuterol Sulfate [Ventolin Hfa] 2 puff IH Q6H PRN 03/08/18 [History] Amlodipine Besylate 10 mg PO DAILY 03/08/18 [History] Aspirin [Lo-Dose Aspirin EC] 81 mg PO DAILY 03/08/18 [History] Cholecalciferol (D-3) [Vitamin D] 1,000 unit PO DAILY 03/08/18 [History] Docusate [Colace] 200 mg PO DAILY PRN 03/08/18 [History] Folic Acid/Vit B Complex and C [Dialyvite Tablet] 1 tab PO DAILY 03/08/18 [ History] Glimepiride [Amaryl] 4 mg PO DAILY 03/08/18 [History] Insulin DETEMIR [Levemir Flextouch] 12 unit SQ QAM 03/08/18 [History] Isosorbide MONOnitrate (24 HR) [Imdur] 30 mg PO DAILY 03/08/18 [History] Labetalol [Trandate] 100 mg PO QPM 03/08/18 [History] Labetalol [Trandate] 200 mg PO QAM 03/08/18 [History] Lisinopril [Zestril] 20 mg PO DAILY 03/08/18 [History] Loratadine [Claritin] 10 mg PO DAILY 03/08/18 [History] Lovastatin [Mevacor] 20 mg PO HS 03/08/18 [History] Omeprazole [PriLOSEC] 20 mg PO DAILY 03/08/18 [History] Tramadol HCl [Ultram] 50 mg PO DAILY PRN 03/08/18 [History] Azithromycin [Zithromax] 500 mg PO DAILY 3 Days #3 tablet 03/10/18 [Rx] Furosemide [Lasix] 80 mg PO DAILY 30 Days #30 tablet 03/10/18 [Rx] Allergies/Adverse Reactions: 3 Allergy/AdvReac Type Severity Reaction Status Date / Time Cefaclor [From Ceclor] Allergy Unknown Rash Verified 03/08/18 10:06 cephalexin Allergy Unknown Rash Verified 03/08/18 10:06 orphenadrine [From Norflex] Allergy Unknown Rash Verified 03/08/18 10:06 rofecoxib [From Vioxx] Allergy Unknown Rash Verified 03/08/18 10:06 sulfamethoxazole Allergy Unknown Rash Verified 03/08/18 10:06 [From Bactrim] trimethoprim [From Bactrim] Allergy Unknown Rash Verified 03/08/18 10:06 valdecoxib [From Bextra] Allergy Unknown Rash Verified 03/08/18 10:06 atorvastatin [From Lipitor] AdvReac Muscle Pain Verified 03/08/18 10:06 Date of admission: 03/08/18 14:32 Primary care physician: Lyle Caro MD Consults: 03/08/18 17:51 Consult to Nephrology [CONS] Routine Consulting Provider: Kidney Savana/NEIL/GALEN/CLEMENT Reason for Consult: ESRD on HD Call Completed: Yes - Constitutional Vitals: Temp Pulse Resp BP Pulse Ox 98.4 F 70 16 133/49 92 03/10/18 06:38 03/10/18 06:38 03/10/18 06:38 03/10/18 06:38 03/10/18 06:38 Exam: Constitutional: No acute distress, Alert, lying nearly flat in bed without oxygen Psych: AAO x 3 HEENT: NCAT, EOMI Cardio: regular rate and rhythm, +s1s2, no murmurs, no JVD Resp: Clear to auscultation bilaterally Abd: soft, non tender/non distended, positive bowel sounds Extremities: no clubbing/cyanosis/edema appreciated; Left upper extremity access Neuro: no focal deficits appreciated - Patient Status Disposition: Home, Self-Care Condition: Good Functional capacity at discharge: uses cane/walker Overall status at discharge: patient is back to baseline - Discharge Instructions Follow Up With: Lyle Caro MD [Primary Care Provider] - - Diet and Activity Activity: increase activity as tolerated Diet: advance to your usual diet - VTE Documentation of Mechanical Device: Intermittent pneumatic compression device
[2018-03-10] MEDS: Lisinopril 20 MG TABLET PO SCH (09:18)
[2018-03-10] MEDS: Furosemide 40 MG/4 ML VIAL IVP SCH (09:18)
[2018-03-10] MEDS: amLODIPine 5 MG TABLET PO SCH (09:18)
[2018-03-10] MEDS: Aspirin Enteric Coated 81 MG Tablet PO SCH (09:18)
[2018-03-10] MEDS: Vitamin B Complex/Vit C/Vit E 1 EACH TABLET PO SCH (09:18)
[2018-03-10] MEDS: Isosorbide MONOnitrate (24 HR) 30 MG TAB.ER.24H PO SCH (09:18)
[2018-03-10] MEDS: Loratadine 10 MG TABLET PO SCH (09:19)
[2018-03-10] MEDS: Insulin DETEMIR 100 UNIT/ML X5UNITS SQ SCH (09:19)
--- NOTE | 2018-03-10 16:26 | Electrocardiograph Report ---
[place] [id number] Test Date: 2018-03-08 Pat Name: Jolanta Freeman Department: [id number] Room: 2A31 Gender: F Claim Examiner: : 1930 Requested By: Ashwin Christy Order Number: [id number] Reading MD: Bar Soto Measurements Intervals [place] Rate: 75 P: 53 OR: 168 QRS: -19 QRSD: 105 T: 64 QT: 406 QTc: 454 Interpretive Statements Sinus rhythm with PVCs Probable left atrial enlargement Borderline low voltage, extremity leads Left ventricular hypertrophy Nonspecific ST-T changes Electronically Signed On 03-10-2018 16:24:36 EDT by Bar Soto
--- NOTE | 2018-03-12 21:25 | Electrocardiograph Report ---
[place] [id number] Test Date: 2018-03-09 Pat Name: Jolanta Freeman Department: 112 Room: 2A Gender: F [employer]ing [employer] C[employer] Operator: : [id number] Requested By: Gagandeep Hunt Order Number: [id number] Reading MD: Kira Lundberg Measurements Intervals [place] Rate: 71 P: 52 MT: 184 QRS: -15 QRSD: 110 T: 30 QT: 467 QTc: 490 Interpretive Statements SINUS RHYTHM POOR R WAVE PROGRESSION IN PRECORDIAL LEADS Electronically Signed On 03-12-2018 21:24:27 EDT by Kira Lundberg
== END 2018-03-10 11:34 | disposition home or self-care (01) | DRG 291 ==
LOC: ICNU 08:37 → EMEROOARM 08:37 → 2ANU 08:37 → SUATTDRO 14:32 → 2ANU 14:50
PROVIDERS: ADMIT Student in an Organized Health Care Education/Training Program; ATTEND Internal Medicine